=== PATIENT | female | born 1975 | race African-American/Black ===

== ENCOUNTER 2023-10-08 20:24 | Inpatient (IN) | payer MEDICAID, SELFPAY ==
--- NOTE | ~2023-10-08 | XR_ITS ---
EXAMINATION: XR CHEST CLINICAL INFORMATION: Hypoxia COMPARISON: None available. TECHNIQUE: Frontal view of the chest was obtained. FINDINGS: No significant abnormality is noted involving the heart, lungs, mediastinum, bony thorax or soft tissues. XR/XR chest 1V IMPRESSION: Unremarkable chest examination. Electronically signed by: Carl Jacobs MD 10/09/2023 07:13 AM EDT RP
--- NOTE | ~2023-10-08 | CT_ITS ---
EXAMINATION: CT ABDOMEN AND PELVIS WITH CONTRAST CLINICAL INFORMATION: Right upper quadrant pain. COMPARISON: None available. TECHNIQUE: Multidetector volumetric images were obtained from the superior aspect of the liver through the pubic symphysis following administration 85 mL of Omnipaque 350 intravenous contrast. Sagittal and coronal reformatted images were obtained on the technologist's workstation. Oral contrast: No This CT examination was performed using dose optimization techniques as appropriate, variously including the following: *Automated exposure control *Adjustment of mA and/or kV according to patient size (this includes techniques or standardized protocols for targeted exams where dose is matched to indication/reason for exam; i.e. extremities or head) *Use of iterative reconstruction technique DLP: 441 mGy-cm FINDINGS: LUNG BASES: The visualized lung bases are unremarkable. LIVER, GALLBLADDER, AND BILIARY TREE: There is a subcentimeter hypodensity left lobe of the liver too small to characterize but likely a small cyst. There is no intrahepatic biliary duct dilatation. The gallbladder is unremarkable with no evidence of radiopaque gallstones, gallbladder wall thickening, or obvious pericholecystic inflammatory changes. PANCREAS: Unremarkable. SPLEEN: Unremarkable. ADRENAL GLANDS: Unremarkable. KIDNEYS AND URETERS: The kidneys are normal in size, shape, and attenuation. No hydronephrosis, hydroureter, or calculi seen. No perinephric stranding. BLADDER: Unremarkable. GASTROINTESTINAL TRACT: There is retained stool. There is a small tubular structure in the right lower quadrant likely a normal appendix. ABDOMINAL WALL: No significant hernia is appreciated. LYMPH NODES: Normal. VASCULAR: Unremarkable. PELVIC VISCERA: There is an IUD in place. There is an apparent partially calcified uterine fibroid measuring 0.5 cm. There is a small amount of free fluid within the pelvis. OSSEOUS STRUCTURES: Unremarkable. CT/CT abdomen pelvis w IV con IMPRESSION: 1. Retained stool throughout the colon. 2. Small amount of free fluid within the pelvis. 3. IUD in place. 4. Small partially calcified uterine fibroid. Fleischner guidelines were followed. Electronically signed by: Ian Fernandez MD 10/09/2023 02:50 AM EDT
--- NOTE | ~2023-10-08 | US_ITS ---
EXAMINATION: US PELVIS COMPLETE CLINICAL INFORMATION: PID, IUD in place COMPARISON: CT abdomen pelvis 10/09/2023 TECHNIQUE: Transabdominal and transvaginal imaging was performed. FINDINGS: The uterus is of normal size and echogenicity measuring 9.2 x 4.9 x 6.2 cm. A regular homogeneous endometrium is identified measuring 0.6 cm. Trace possible fluid within the endometrial canal. Nabothian cysts in the cervix. Intrauterine device in place. A 1.8 cm partially pedunculated subserosal myoma in the right fundus of the uterus and a 1.3 cm subserosal myoma in the right body of the uterus. Both ovaries are of normal echogenicity. The right measures 4.4 x 2.9 x 3.1 cm for a volume of 20.7 mL. The right ovary is remarkable for a 3.3 cm benign functional cyst, no follow-up imaging recommended. Involuting physiologic right ovarian corpus luteum. The left measures 3.3 x 1.4 x 2.4 cm and is remarkable for a punctate nonspecific calcification. There is small to moderate volume simple pelvic and right adnexal free fluid. US/US pelvic and transvaginal IMPRESSION: 1. Small to moderate volume simple pelvic and right adnexal free fluid, common nonspecific but can be seen in the setting of ovarian cyst rupture. 2. Intrauterine device in place. 3. A 1.8 cm partially pedunculated subserosal myoma in the right fundus and a 1.3 cm subserosal myoma in the right body of the uterus. 4. The right ovary is remarkable for a 3.3 cm benign functional cyst, no follow-up imaging recommended. Electronically signed by: Mahnaz Kitchen MD 10/09/2023 11:53 AM EDT
[2023-10-08 21:40] VITALS: BP 112/61; PULSE 103; RESP 18; TEMP 38.2; O2SAT 98; BMI 26.9
[2023-10-08 22:03] LABS: MANUAL DIFF FLAG NO
[2023-10-08 22:04] LABS: Basophils Percent Auto 0.2 % (0-2); Eosinophils Percent Auto 0.2 % (0-4); Hematocrit 35.2 % (37.0-47.0); Hemoglobin 12.2 g/dl (12.0-16.0); Imm Gran Abs Auto 0.03 X10*3/uL (0.00-0.03); Imm Gran Pct Auto 0.5 % (0.0-0.4); Lymphocytes Absolute Auto 0.6 X10*3/uL (1.2-4.9); Mean Corpuscular HGB Conc 34.7 g/dl (31.0-35.0); Mean Corpuscular Hemoglobin 29.4 pg (27.0-33.0); Mean Corpuscular Volume 84.8 fL (80.0-98.0); Mean Platelet Volume 10.4 fL (9.4-12.3); Monocytes Absolute Auto 0.2 X10*3/uL (0.1-1.2); Monocytes Percent Auto 3.4 % (2-11); Neutrophils Absolute Auto 4.8 x10*3/uL (2.0-8.3); Neutrophils Percent Auto 84.7 % (45-73); Platelet Count 182 X10*3/uL (160-400); Red Blood Count 4.15 X10*6/uL (4.20-5.50); Red Cell Distribution Width 14.8 % (11.0-16.0); White Blood Count 5.6 X10*3/uL (4.8-10.8)
[2023-10-08 22:17] LABS: Alanine Aminotransferase 373 U/L (0-31); Albumin Level 3.9 g/dL (3.5-5.0); Alkaline Phosphatase 327 U/L (39-117); Anion Gap 13 (12-20); Aspartate Amino Transferase 634 U/L (5-31); Bilirubin Total 0.9 mg/dL (0.0-1.0); Blood Urea Nitrogen 16 mg/dL (9-16); Calcium 9.1 mg/dL (8.4-10.2); Carbon Dioxide 25 mmol/L (22-29); Chloride 104 mmol/L (96-108); Creatinine Clr Calc Pharmacy 67.7; Estimated Glomerular Filt Rate > 60; Glucose Random 118 mg/dL (60-115); Sodium 138 mmol/L (135-145)
[2023-10-08 22:40] LABS: Influenza A PCR NEGATIVE (Negative); Influenza B PCR NEGATIVE (Negative); Resp Syncy Virus RNA Qual PCR NEGATIVE (Negative); SARS COV2 PCR INHOUSE NEGATIVE (Negative)
[2023-10-09] VITALS (18 sets, daily range): BP systolic 90–142; BP diastolic 46–76; PULSE 74–118; RESP 16–36; TEMP 36.3–39.6; O2SAT 85–100; BMI 28.6
--- NOTE | 2023-10-09 00:50 | ED_ITS ---
HPI - Abdominal Pain General Chief Complaint: Upper Respiratory Symptoms Stated Complaint: fever since monday, body aches, nausea Time Seen by Provider: 10/09/23 00:18 Source: patient Mode of arrival: ambulatory Limitations: no limitations History of Present Illness ED Provider: Dr. Indio Saba HPI narrative: 48-year-old female with no significant past medical history who presents emergency department for evaluation of body aches, fever, cough, nausea, unable to eat secondary to food tasting bed, body aches and a vaginal discharge. Patient states she has had symptoms for proximally 5 days. She describes the vaginal discharge as a yellowish discharge with a foul odor. The patient is sexually active and she last had sex 1 week prior. She has 1 sexual partner. She denied diarrhea. She has had dysuria but no urinary frequency. Related Data Allergies Allergy/AdvReac Type Severity Reaction Status Date / Time No Known Allergies Allergy Verified 10/08/23 21:41 Review of Systems Review of Systems Yes all other systems are reviewed and are negative [facility] Past Medical History [facility] Narrative: Social history: She denies tobacco, alcohol and drug use Social History Social History Advance Directives: No Advance Directives Information Provided: Yes Physical Exam ED Vital Signs: Vital Signs - 24 hr 10/08/23 21:40 Temperature 100.8 F H Pulse Rate 103 H Respiratory Rate 18 Blood Pressure 112/61 Pulse Oximetry 98 Oxygen Delivery Method Room Air BMI result Body Mass Index 26.9 Vital signs revealed a low-grade fever of 100.8 degrees F, elevated heart rate of 103 Exam: General: Awake, alert in no distress Head: Normocephalic, atraumatic EENT: PERRL, Lids normal, sclera normal, conjunctiva normal, nose normal , ears normal, throat without erythema or exudates Neck: Supple, no adenopathy Lung: breath sounds symmetric, no wheezing, rales or rhonchi Chest: symmetric movement, nontender Heart: regular rate and rhythm, normal S1, S2 no murmurs or rubs Abdomen: Mild to moderate right upper quadrant tenderness with a negative Dukes sign, moderate right lower quadrant tenderness, mild to moderat, no involuntary guarding : External: No lesions noted Speculum: Vaginal: Thick white vaginal discharge Cervical: Thick, yellow, cervical discharge, IUD wires visible Bimanual: Patient has moderate to severe cervical motion tenderness, tenderness with palpation over the uterus and adnexa bilaterally Bimanual: Back: no vertebral tenderness, no CVAT Extremities: no deformities, moves all extremities symmetrically Neuro: Awake, alert, oriented, normal speech, cranial nerves intact, moves all extremities symmetrically Psych: Pleasant, cooperative Medical Decision Making Medical Decision Making MDM Narrative: 48-year-old female with no significant past medical history who presents emergency department for evaluation of body aches, fever, cough, nausea, unable to eat secondary to food tasting bed, body aches and a vaginal discharge. Patient states she has had symptoms for proximally 5 days. She describes the vaginal discharge as a yellowish discharge with a foul odor. The patient is sexually active and she last had sex 1 week prior. She has 1 sexual partner. She denied diarrhea. She has had dysuria but no urinary frequency. Vital signs revealed elevated heart rate and fever of 100.8 degrees F. physical examination revealed, right lower quadrant and suprapubic tenderness. exam revealed thick white vaginal discharge, thick yellow cervical discharge and significant cervical motion tenderness, tenderness palpation of the Unit nurse and adnexa bilaterally Differential diagnosis: ?Includes but is not limited to pancreatitis, cholecystitis, appendicitis, urinary tract infection, STI, viral syndrome Following evaluation was ordered: CBC, CMP, lipase, quantitative beta-hCG, on cultures, lactic acid, HIV, hepatitis A, B and C, syphilis screen, bacterial vaginosis panel, chlamydia and gonorrhea PCR, , HIV, Trichomonas screen, CT scan of the abdomen pelvis with IV contrast Patient was initially treated with the following: IV insert, normal saline x1 L, Toradol 15 mg IV, Zofran 4 mg IV Course: 01:57 The patient's abdominal exam revealed significant right upper quadrant, right lower quadrant and suprapubic tenderness. Concerning for pelvic inflammatory disease. Comprehensive metabolic panel revealed elevated AST, ALT and alk-phos with a normal bilirubin. I am concerned that the patient's symptoms may be secondary to pelvic inflammatory disease/chlamydial infection causing Jose-Hung- Zeb Syndrome. Therefore I ordered ceftriaxone 1 g IV and Flagyl 500 mg IV. At the end of my shift, the patient's CT scan of the abdomen pelvis is pending therefore the patient's care was turned over to my colleague, Dr. Gordon Albarran. Admission/Observation Consideration of admission/observation: Escalation of care including admission/observation considered (Yes) Lab Data [facility] Lab Attestation statement: I reviewed the patient's lab results. My independent interpretation patient's laboratory evaluation as follows: WBC was normal 5600. Normocytic anemia with an H&H of 12 and 35. Elevated AST, ALT and alk-phos at 634, 373 in 327 patient was bilirubin was normal Pat 0.9. COVID-19, influenza and RSV were negative 10/08/23 21:58 10/08/23 21:58 Labs: Lab Results 10/08/23 Range/Units 21:58 WBC 5.6 (4.8-10.8) X10*3/uL RBC 4.15 L (4.20-5.50) X10*6/uL Hgb 12.2 (12.0-16.0) g/dl Hct 35.2 L (37.0-47.0) % MCV 84.8 (80.0-98.0) fL MCH 29.4 (27.0-33.0) pg MCHC 34.7 (31.0-35.0) g/dl RDW 14.8 (11.0-16.0) % Plt Count 182 (160-400) X10*3/uL MPV 10.4 (9.4-12.3) fL Immature Gran % (Auto) 0.5 H (0.0-0.4) % Neut % (Auto) 84.7 H (45-73) % Lymph % (Auto) 11.0 L (20-40) % Larimer % (Auto) 3.4 (2-11) % Eos % (Auto) 0.2 (0-4) % Baso % (Auto) 0.2 (0-2) % Lymph # (Auto) 0.6 L (1.2-4.9) X10*3/uL Larimer # (Auto) 0.2 (0.1-1.2) X10*3/uL Eos # (Auto) 0.0 (0.0-0.4) X10*3/uL Baso # (Auto) 0.0 (0.0-0.2) X10*3/uL Abs Immat Gran (auto) 0.03 (0.00-0.03) X10*3/uL Absolute Neuts (auto) 4.8 (2.0-8.3) x10*3/uL Absolute Nucleated RBC 0.000 (0.0-0.012) X10*3/uL Nucleated RBC % (auto) 0.0 (0.0-0.2) /100WBC Sodium 138 (135-145) mmol/L Potassium 4.0 (3.3-5.1) mmol/L Chloride 104 (96-108) mmol/L Carbon Dioxide 25 (22-29) mmol/L Anion Gap 13 (12-20) BUN 16 (9-16) mg/dL Creatinine 0.89 (0.5-1.4) mg/dL Estim Creat Clear Calc 67.7 Estimated GFR > 60 Random Glucose 118 H (60-115) mg/dL Calcium 9.1 (8.4-10.2) mg/dL Total Bilirubin 0.9 (0.0-1.0) mg/dL AST 634 H (5-31) U/L ALT 373 H (0-31) U/L Alkaline Phosphatase 327 H (39-117) U/L Total Protein 7.0 (6.5-8.0) g/dL Albumin 3.9 (3.5-5.0) g/dL Lipase 11 (8-78) U/L Influenza Type A (PCR) NEGATIVE (Negative) Influenza Type B (PCR) NEGATIVE (Negative) RSV RNA Qual (PCR) NEGATIVE (Negative) SARS-CoV-2 RNA (RT-PCR) NEGATIVE (Negative) Medications Administered Discontinued Medications Generic Name Dose Route Start Last Admin Trade Name Freq PRN Reason Stop Dose Admin Iohexol 85 ml 10/09/23 01:58 10/09/23 01:58 Iohexol 350 Mg/Ml 100 Ml Infus..Btl IV 10/09/23 01:59 85 ml ONCE ONE Administration Discharge Plan Discharge Clinical Impression: Acute pelvic inflammatory disease, Abnormal liver function test Patient Disposition: Still a Patient Print Language: Albanian
[2023-10-09 01:30] LABS: Lipase 11 U/L (8-78)
[2023-10-09] MEDS: iohexoL 350 MG/ML 100 ML INFUS..BTL 85 ML IV (01:58)
[2023-10-09] MEDS: 0.9 % Sodium Chloride 1,000 ML 999 ML IV ×4 (02:15→10:52)
[2023-10-09] MEDS: Ketorolac Tromethamine 15 MG/ML VIAL IVPUSH (02:15)
[2023-10-09] MEDS: ondansetron HCL 4 MG/2 ML VIAL IVPUSH ×2 (02:15→22:59)
[2023-10-09 02:21] LABS: HCG Quantitative < 2 mIU/mL
[2023-10-09] MEDS: cefTRIAXone sodium 1 GM in 0.9 % Sodium Chloride 50 ML IV (02:41)
[2023-10-09 02:52] LABS: Lactic Acid 0.8 mmol/L (0.5-2.0)
[2023-10-09] MEDS: metroNIDAZOLE/NS 500 MG/100 ML PIGGYBACK 100 MG IV ×3 (03:28→20:23)
[2023-10-09] MEDS: Doxycycline Hyclate 100 MG in 0.9 % Sodium Chloride 250 ML 166.67 MG IV (04:38)
--- NOTE | 2023-10-09 04:38 | MHC.EDTECH ---
This tech took over care of patient at 0340,patient came from EM bed 5,rounds and vitals completed BP is low 93/46,Crystal MANRIQUEZ made aware,son at bedside and call beck in reach
[2023-10-09 04:48] LABS: CT PCR NOT DETECTED (Not Detect.); NG PCR NOT DETECTED (Not Detect.)
[2023-10-09] MEDS: Acetaminophen 325 MG TABLET 975 MG PO (05:19)
[2023-10-09] MEDS: Ibuprofen 600 MG TABLET PO (05:19)
--- NOTE | 2023-10-09 05:24 | PC.NURSE ---
pt was walking back from bathroom, shivering. back in bed pt couldn't control the tremors, feels like she is freezing. temp was 98.3 at that time. 20 minutes later with warm blankets and no change, temp 103.2. aware. blankets removed, pt medicated per APR
--- NOTE | 2023-10-09 06:15 | PC.NURSE ---
pt walked to bathroom to provide UA. vitals taken upon return. O2 85-91% on RA. pt placed on 2L 93%
--- NOTE | 2023-10-09 06:15 | MHC.EDTECH ---
Patient ambulated to the bathroom with a steady gait,urine sample obtained and sent to lab,patient has a temp of 103.0,RN is aware and at bedside.
[2023-10-09 06:19] LABS: Appearance Urine Clear; Color Urine Yellow; Glucose Urine UA Negative (Negative); Leukocyte Esterase Urine Trace (Negative); Nitrite Urine Negative (Negative); PH 5.5 (5.0-9.0); Specific Gravity - Urine >= 1.030 (1.005-1.025); UMIC TRIGGER UACC YES; Urine Blood Moderate (2+) (Negative); Urine Ketones 15 mg/dL (Negative); Urine Protein 30 (1+) mg/dL (Neg-Trace)
[2023-10-09 06:32] LABS: Bacteria Urine None Seen (None Seen); Hyaline Casts Urine 0-2 /LPF (0-2); WBC Urine 0-5 /HPF (0-5)
[2023-10-09 09:08] LABS: Bacterial Vaginosis PCR POSITIVE (Negative); Candida Group PCR DETECTED (Not Detect); Candida glab krusei PCR NOT DETECTED (Not Detect); Trichomonas vaginalis PCR NOT DETECTED (Not Detect)
--- NOTE | 2023-10-09 10:02 | PM.IMHP ---
History of Present Illness Date of Service: 10/09/23 Attending physician on admission: [facility] Chief Complaint: fevers, vaginal discharge 48 year old female with no significant past medical history except for recurrent UTi and recurrent vaginal candidiasis infections presented to the ED late last night for evaluation of fevers with rigors, malaise, myaglias that started 5 days ago. She states the next day developed vaginal soreness, RLQ pain, and yellow foul smelling vaginal discharge. She has had decreased appetite but no nausea and vomiting. She has one sexual partner and reports both are monogamous with each other. She does have an IUD in place for over 5 years and reports it was supposed to have already been removed but is overdue. She reports she had her first menstrual period last week since insertion of the IUD. No intercourse in 1 week and denies dyspareunia at that time. 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 No st, congestion, nausea, vomiting, dysuria, hematuria, increased urinary frequency, cough, sob, wheezing, or chest pain. Since arrival, has been febrile to 103, tachycardic to 118, tachypneic to 36, blood pressures soft at the time but no hypotension. She was given 2L with improvement in SBP to 142/67, on admission BP 93/52, meeting severe sepiss criteria. Lactic acid WNL, blood cultures pending. Renal function WNL, lytes normal. No leukocytosis. Total bili 0.9, AST 634, ALT 373, Alk phos 327. UA with elevated SG, 1+ protein, 2+ blood, trace leuks, no pyuria, neg bacteria. Neg for vale/chlamydia. +BV and +ally. Trich, HIV, syphillis, and Hep a/b/c pending. CT abd/pelvis showsretained stool, small amount of free fluid w/i pelvis, IUD in place, and smally partially calcified fibroid. In the ED, given 2L IVF, IV doxy, IV ctx, IV flagyl, tylenol, and ketorolac. No illicit drugs, alcohol, or cigarettes. Review of Systems Review of Systems: Yes all other systems are reviewed and are negative [facility] Medical History Recurrent UTI Vulvovaginal candidiasis Social History Household Members: Spouse Housing: Apartment Do you presently have visiting nurse or other home services: No Patient Tobacco Use Status: Never used Tobacco Meds Allergies Allergy/AdvReac Type Severity Reaction Status Date / Time No Known Allergies Allergy Verified 10/08/23 21:41 Active Medications: Current Medications Sodium Chloride (Ns) 1,000 mls @ 999 mls/hr IV .Q1H1M JIN Stop: 10/09/23 11:00 Home Medications ?Medication ?Instructions ?Recorded ?Confirmed ?Last Taken ?Type No Known Home Meds 10/09/23 10/09/23 Unknown History Physical Exam Vital Signs and Narrative: Vital Signs: Last Vital Signs Temp 98.2 F 10/09/23 08:00 Pulse 97 10/09/23 08:00 Resp 18 10/09/23 08:00 BP 113/76 10/09/23 08:00 Pulse Ox 95 10/09/23 08:00 O2 Del Method Room Air 10/09/23 08:00 O2 Flow Rate 2 10/09/23 06:42 BMI result Body Mass Index 26.9 Constitutional - Awake and Alert, No apparent distress Eyes - PERRLA, EOMI Cardiovascular - S1S2, RRR, No edema Respiratory - Normal lung expansion, Normal respiratory effort, No respiratory distress, CTA bilaterally Gastrointestinal - RUQ/RLQ ttp. ND; +BS; No rebound or guarding - Per ED exam, pelvis exam shows yellow discharge with +cervical motion tenderness Extremities - no calf tenderness bilaterally, no swelling Skin - Warm/Dry Neurological - Alert & oriented x3 Psychological - Appropriate affect Results Labs 10/10/23 05:53 10/10/23 05:53 Labs: Laboratory Results - last 24 hr 10/08/23 10/09/23 10/09/23 21:58 01:49 02:32 MCV 84.8 MCH 29.4 MCHC 34.7 RDW 14.8 Plt Count 182 MPV 10.4 Immature Gran % (Auto) 0.5 H Neut % (Auto) 84.7 H Lymph % (Auto) 11.0 L Coles % (Auto) 3.4 Eos % (Auto) 0.2 Baso % (Auto) 0.2 Lymph # (Auto) 0.6 L Coles # (Auto) 0.2 Eos # (Auto) 0.0 Baso # (Auto) 0.0 Abs Immat Gran (auto) 0.03 Absolute Neuts (auto) 4.8 Absolute Nucleated RBC 0.000 Nucleated RBC % (auto) 0.0 Anion Gap 13 Estim Creat Clear Calc 67.7 Estimated GFR > 60 Random Glucose 118 H Lactic Acid 0.8 Calcium 9.1 Total Bilirubin 0.9 AST 634 H ALT 373 H Alkaline Phosphatase 327 H Total Protein 7.0 Albumin 3.9 Lipase 11 Beta HCG, Quant < 2 Urine Color Urine Appearance Urine pH Ur Specific Carroll Urine Protein Urine Glucose (UA) Urine Ketones Urine Blood Urine Nitrite Ur Leukocyte Esterase Urine RBC Urine WBC Ur Squamous Epith Cells Urine Bacteria Hyaline Casts Chlam trachomat DNA PCR NOT DETECTED Influenza Type A (PCR) NEGATIVE Influenza Type B (PCR) NEGATIVE N.gonorrhoeae DNA (PCR) NOT DETECTED RSV RNA Qual (PCR) NEGATIVE SARS-CoV-2 RNA (RT-PCR) NEGATIVE T. vaginalis (PCR) NOT DETECTED Bact Vaginosis (PCR) POSITIVE A C. krusei/glabrata (PCR) NOT DETECTED Ally group (PCR) DETECTED A 10/09/23 06:14 MCV MCH MCHC RDW Plt Count MPV Immature Gran % (Auto) Neut % (Auto) Lymph % (Auto) Coles % (Auto) Eos % (Auto) Baso % (Auto) Lymph # (Auto) Coles # (Auto) Eos # (Auto) Baso # (Auto) Abs Immat Gran (auto) Absolute Neuts (auto) Absolute Nucleated RBC Nucleated RBC % (auto) Anion Gap Estim Creat Clear Calc Estimated GFR Random Glucose Lactic Acid Calcium Total Bilirubin AST ALT Alkaline Phosphatase Total Protein Albumin Lipase Beta HCG, Quant Urine Color Yellow Urine Appearance Clear Urine pH 5.5 Ur Specific Carroll >= 1.030 H Urine Protein 30 (1+) H Urine Glucose (UA) Negative Urine Ketones 15 Urine Blood Moderate (2+) H Urine Nitrite Negative Ur Leukocyte Esterase Trace H Urine RBC 11-20 H Urine WBC 0-5 Ur Squamous Epith Cells 3-5 Urine Bacteria None Seen Hyaline Casts 0-2 Chlam trachomat DNA PCR Influenza Type A (PCR) Influenza Type B (PCR) N.gonorrhoeae DNA (PCR) RSV RNA Qual (PCR) SARS-CoV-2 RNA (RT-PCR) T. vaginalis (PCR) Bact Vaginosis (PCR) C. krusei/glabrata (PCR) Ally group (PCR) Imaging Radiologist's Impressions: Impressions Abdomen/Pelvis CT 10/09/23 01:40 IMPRESSION: 1. Retained stool throughout the colon. 2. Small amount of free fluid within the pelvis. 3. IUD in place. 4. Small partially calcified uterine fibroid. Fleischner guidelines were followed. Electronically signed by: Ian Fernandez MD 10/09/2023 02:50 AM EDT RP Chest X-Ray 10/09/23 06:22 IMPRESSION: Unremarkable chest examination. Electronically signed by: Carl Jacobs MD 10/09/2023 07:13 AM EDT RP Assessment and Plan (1) Abnormal liver function test: Status: Acute (2) Acute pelvic inflammatory disease: Status: Acute (3) Bacterial vaginosis: Status: Acute (4) Vulvovaginal candidiasis: Status: Acute Plan 48 year old female with no significant past medical history except for recurrent UTi and recurrent vaginal candidiasis infections admitted for further management of PID with severe sepsis #Acute pelvic inflammatory disease with severe sepsis -No leukcytosis but febrile to 103, tachycardic and tachypneic. Met severe sepsis criteria at 947am with decrease in SBP >40. Repeat lactic acid and blood cultures pending. Administer 2L IVF (30cc/kg bolus) -Neg gonorrhea/chlamydia. Trich pending. +BV, +Ally. +cervical motion tenderness on exam and yellow dc -CT abd/pelvis shows small amt of free fluid. Check pelvic/transvaginal US -IUD overdue for removal per pt (unknown brand) -IV doxy, ctx, flagyl (initiated 10/08) -OBGYN consult -Follow cbc, cultures #Elevated LFTs -bili wnl, AST >600, ALT >300, Alk phos >300 -?r/t sepsis vs ?Soyu-Mmqe-Hitlnf? -hepatitis panel and HIV pending -check cpk -GI consult -trend #Acute metabolic acidosis -likely due to sepsis. CO2 25-->19. Check VBG -continue ivf #Constipation -add miralax DVT prophylaxis- lovenox Full code Pt requires inpt stay at least 2 midnights due to severe sepsis r/t PID requiring IV abx and IVF with expert consultation Quality Stroke Does the patient have a stroke diagnosis?: No VTE Prior VTE?: No VTE Risk Level:: Medical - moderate - high VTE Device Contraindication: Treatment Not Indicated VTE Drug Contraindication: N/A - Med Ordered
[2023-10-09 10:56] LABS: MANUAL DIFF FLAG NO
[2023-10-09 10:58] LABS: Basophils Percent Auto 0.4 % (0-2); Hematocrit 31.7 % (37.0-47.0); Hemoglobin 10.7 g/dl (12.0-16.0); Imm Gran Abs Auto 0.06 X10*3/uL (0.00-0.03); Imm Gran Pct Auto 0.6 % (0.0-0.4); Lymphocytes Absolute Auto 0.8 X10*3/uL (1.2-4.9); Lymphocytes Percent Auto 7.6 % (20-40); Mean Corpuscular HGB Conc 33.8 g/dl (31.0-35.0); Mean Corpuscular Hemoglobin 29.2 pg (27.0-33.0); Mean Corpuscular Volume 86.4 fL (80.0-98.0); Mean Platelet Volume 9.8 fL (9.4-12.3); Monocytes Absolute Auto 0.4 X10*3/uL (0.1-1.2); Monocytes Percent Auto 3.4 % (2-11); Neutrophils Absolute Auto 9.2 x10*3/uL (2.0-8.3); Platelet Count 156 X10*3/uL (160-400); Red Blood Count 3.67 X10*6/uL (4.20-5.50); White Blood Count 10.4 X10*3/uL (4.8-10.8)
[2023-10-09 11:11] LABS: Lactic Acid 0.8 mmol/L (0.5-2.0)
[2023-10-09 11:15] LABS: Alanine Aminotransferase 231 U/L (0-31); Albumin Level 3.3 g/dL (3.5-5.0); Alkaline Phosphatase 233 U/L (39-117); Anion Gap 16 (12-20); Aspartate Amino Transferase 238 U/L (5-31); Bilirubin Direct 0.7 mg/dL (0.0-0.5); Blood Urea Nitrogen 11 mg/dL (9-16); Carbon Dioxide 19 mmol/L (22-29); Chloride 107 mmol/L (96-108); Creatinine Clr Calc Pharmacy 66.9; Estimated Glomerular Filt Rate > 60; Glucose Random 105 mg/dL (60-115); Potassium 3.4 mmol/L (3.3-5.1); Sodium 139 mmol/L (135-145); Total Protein 5.9 g/dL (6.5-8.0)
--- NOTE | 2023-10-09 11:45 | PC.NURSE ---
Assumed care of this patient at 1100, informed by previous nurse Cecilia patient is considered a sepsis alert, 2L NS running in 20 L AC, patient denies pain at this time, phleb at bedside to draw additional lab, am meds not given yet to be given now.
[2023-10-09] MEDS: Enoxaparin Sodium 40 MG/0.4 ML SYRINGE SUBCUT (11:48)
[2023-10-09] MEDS: Fluconazole 150 MG TABLET PO (11:48)
[2023-10-09] MEDS: polyethylene glycoL 3350 17 GM POWD.PACK PO (11:49)
[2023-10-09 11:56] LABS: Venous Blood Gas Refer to POC result
[2023-10-09 11:58] LABS: VBG Base Excess -4.1 mmol/L; VBG HCO3 20 mmol/L (22-26); VBG pCO2 36 mmHg; VBG pH 7.36 (7.32-7.43); VBG pO2 29 mmHg
--- NOTE | 2023-10-09 12:38 | PM.GICN ---
History of Present Illness Data of Consult Service Date: 10/09/23 Requesting physician: Sugar Manley Primary Care Provider: Unknown Physician HPI Reason for consult: abn LFT 48 year old female with hx of recurrent UTi and recurrent vaginal candidiasis infections who I am seeing for assessment for abn LFT She had 5 d of whole body pain, with rigors, fevers and chills. HSe also had poor appetite. She has mild nausea. She noted mild RLQ pain which is now gone and a yellow vaginal d/c which is new for her. Denies dysuria, hematuria, increased urinary frequency, cough, sob, wheezing, or chest pain.No sick contacts or illicit drug use. Imaging: CT with small amount of free fluid w/i pelvis, IUD in place, and smally partially calcified fibroid Labs: Lactic acid WNL, blood cultures pending. Renal function WNL, lytes normal. No leukocytosis. Total bili 0.9, AST 634, ALT 373, Alk phos 327. UA with elevated SG, 1+ protein, 2+ blood, trace leuks, no pyuria, neg bacteria. Neg for vale/chlamydia. +BV and +ally. Trich, HIV, syphillis, and Hep a/b/c pending Review of Systems Review of Systems: Constitutional : No Weight loss, ENT/Mouth : No sore throat, No Rhinorrhea Eyes: No Swelling, No Redness Cardiovascular : No Chest Pain, No SOB, No Edema Respiratory : No Cough, No Sputum, No Wheezing Gastrointestinal : see HPI Genitourinary : NO Dysuria, No Urinary Frequency, No Hematuria, No Urgency Musculoskeletal : + joint pain, No Myalgias, No Joint Swelling Skin : No Skin Lesions, No rash Neuro : + Weakness, No Numbness, No Dizziness, No Headache Psych : No Anxiety/Panic, No Depression Heme/Lymph: No Bruising, No Lymphadenopathy Endocrine : No Polyuria, No Polydipsia All other systems reviewed and are negative. [facility] Past Medical History Medical History Recurrent UTI Vulvovaginal candidiasis Family History Pertinent family history: no fh of liver dz Social History Social History Patient Tobacco Use Status: Never used Tobacco Smoked in Last 30 Days: No Use of substances other than those prescribed or required for medical reasons: No Advance Directives: No Advance Directives Information Provided: Yes Nutrition Risks: No Nutritional Risk Patient : No Meds Allergies Allergy/AdvReac Type Severity Reaction Status Date / Time No Known Allergies Allergy Verified 10/08/23 21:41 Active Medications: Current Medications Acetaminophen (Acetaminophen 325 Mg Tablet) 650 mg PO Q6H PRN PRN Reason: Pain, Mild (Pain Scale 1-3), fever or headache Calcium Carbonate (Calcium Carbonate 750 Mg Tab.Chew) 750 mg PO Q4H PRN PRN Reason: Heartburn Enoxaparin Sodium (Enoxaparin Sodium 40 Mg/0.4 Ml Syringe) 40 mg SUBCUT Q24H [facility] Last Admin: 10/09/23 11:48 Dose: 40 mg Metronidazole (Flagyl) 500 mg in 100 mls @ 100 mls/hr IV Q8H [facility] Last Admin: 10/09/23 11:49 Dose: 100 mls/hr Ceftriaxone Sodium 1 gm/ (Sodium Chloride) 50 mls @ 100 mls/hr IV Q24H [facility] Doxycycline Hyclate 100 mg/ (Sodium Chloride) 250 mls @ 166.67 mls/hr IV Q12H [facility] Magnesium Hydroxide (Milk Of Magnesia 30 Ml Oral.Susp) 30 ml PO DAILY PRN PRN Reason: Constipation Melatonin (Melatonin 3 Mg Tablet) 6 mg PO BEDTIME PRN PRN Reason: Insomnia Oxycodone HCl (Oxycodone Hcl Immed Release 5 Mg Tablet) 5 mg PO Q6H PRN PRN Reason: Pain, Severe (Pain Scale 7-10) Polyethylene Glycol (Polyethylene Glycol 3350 17 Gm Powd.Pack) 17 gm PO DAILY [facility] Last Admin: 10/09/23 11:49 Dose: 17 gm Sodium Chloride (0.9 % Sodium Chloride Flush 3 Ml Syringe) 3 ml IVFLUSH QSHIFT [facility] Physical Exam Vital Signs: Vital Signs: Last Vital Signs Temp 97.8 F 10/09/23 11:56 Pulse 82 10/09/23 11:56 Resp 16 10/09/23 11:56 BP 92/54 L 10/09/23 11:56 Pulse Ox 99 10/09/23 11:56 O2 Del Method Room Air 10/09/23 11:56 O2 Flow Rate 2 10/09/23 06:42 BMI result Body Mass Index 26.9 EXAM: GENERAL: The patient is well developed and nontoxic. VITAL SIGNS:see workflow HEENT: Nonicteric sclerae, PERRLA, EOMI. Oropharynx clear. Moist mucous membranes. Conjunctivae appear well perfused. No thyroid mass. CHEST: Chest wall is nontender. HEART: Regular rate and rhythm without murmurs. LUNGS: Clear to auscultation bilaterally. ABDOMEN: Soft, positive bowel sounds, diffusely tender, no organomegaly.no flank tenderness SKIN: No rash, no excessive bruising, petechiae, or purpura. NEUROLOGIC: Cranial nerves II-XII intact without motor/sensory deficit. Psych: normal affect Results Labs 10/09/23 10:50 10/09/23 10:51 Labs: Short CBC 10/08/23 10/09/23 Range/Units 21:58 10:50 WBC 5.6 10.4 (4.8-10.8) X10*3/uL Hgb 12.2 10.7 L (12.0-16.0) g/dl Hct 35.2 L 31.7 L (37.0-47.0) % Plt Count 182 156 L (160-400) X10*3/uL BMP 10/08/23 10/09/23 21:58 10:51 Sodium 138 139 Potassium 4.0 3.4 Chloride 104 107 Carbon Dioxide 25 19 L BUN 16 11 Creatinine 0.89 0.90 Calcium 9.1 8.0 L D Cardiac Enzymes 10/09/23 Range/Units 11:45 Total Creatine Kinase 186 H (26-140) U/L Liver Function 10/08/23 10/09/23 Range/Units 21:58 10:51 Total Bilirubin 0.9 1.0 (0.0-1.0) mg/dL Direct Bilirubin 0.7 H (0.0-0.5) mg/dL AST 634 H 238 H (5-31) U/L ALT 373 H 231 H (0-31) U/L Alkaline Phosphatase 327 H 233 H (39-117) U/L Albumin 3.9 3.3 L (3.5-5.0) g/dL Urine 10/09/23 Range/Units 06:14 Urine Color Yellow Urine Appearance Clear Urine pH 5.5 (5.0-9.0) Ur Specific [place] >= 1.030 H (1.005-1.025) Urine Protein 30 (1+) H (Neg-Trace) mg/dL Urine Glucose (UA) Negative (Negative) mg/dL Microbiology Microbiology Results: Microbiology 10/09/23 01:49 Vaginal Trichomonas Preparation - Final Assessment and Plan (1) Abnormal liver function test: Status: Acute Plan 1/ Abn LFT prob related to sepsis and cholestasis, second set of LFT [facility] lower than index set, she has no RF for acute hepatitis, ddx: other viral agents like flu, covid, EBV etc--may also have UTI or PID and receiving ABX--imaging not consistent with mode high deepthi PLAN; 1/ await urine and blood c/s 2/ check viral pcr panel and EBV if LFT remain elevated 3/ Ck also elevated --some rise may be due to her fevers and coming from muscle 4/ await hep A,B,C -hiv etc 5/ check acetaminophen level Procedures Date of Service Date of Service: 10/09/23
--- NOTE | 2023-10-09 13:05 | PHA.MEDREC ---
Pharmacy Consult ? Medication Reconciliation Pharmacy has completed the medication reconciliation. Verified with patient, she is not taking any medication at home.
--- NOTE | 2023-10-09 13:06 | PC.NURSE ---
Dr. Ramirez ordered add on test for CPK, already drawn earlier this AM, reached out to Dr. Ramirez via tiger to see if he needed another lab drawn, James said no redrawn necessary. Patient to be admitted to 4th floor once transport available.
[2023-10-09 13:36] LABS: Acetaminophen LAB < 3 mcg/mL (<30)
[2023-10-09] MEDS: Lactated Ringers 1,000 ML 80 ML IVCONT (14:00)
[2023-10-09] MEDS: Albumin Human 25 % 100 ML 133.33 ML IV ×2 (16:17→17:30)
[2023-10-09] MEDS: 0.9 % Sodium Chloride Flush 3 ML SYRINGE IVFLUSH (16:23)
[2023-10-10] MEDS: oxyCODONE HCl Immed Release 5 MG TABLET PO (00:15)
[2023-10-10] MEDS: Acetaminophen 325 MG TABLET 650 MG PO (00:27)
[2023-10-10] MEDS: 0.9 % Sodium Chloride Flush 3 ML SYRINGE IVFLUSH ×3 (00:31→16:23)
[2023-10-10] MEDS: Lactated Ringers 1,000 ML 80 ML IVCONT ×2 (02:30→18:00)
[2023-10-10] MEDS: cefTRIAXone sodium 1 GM in 0.9 % Sodium Chloride 50 ML IV (02:44)
[2023-10-10] MEDS: metroNIDAZOLE/NS 500 MG/100 ML PIGGYBACK 100 MG IV ×3 (03:29→19:39)
[2023-10-10 03:56] VITALS: BP 97/54; PULSE 72; RESP 16; TEMP 36.4; O2SAT 96
[2023-10-10 06:06] LABS: MANUAL DIFF FLAG NO
[2023-10-10 06:18] LABS: Basophils Percent Auto 0.4 % (0-2); Eosinophils Absolute Auto 0.1 X10*3/uL (0.0-0.4); Hematocrit 26.7 % (37.0-47.0); Hemoglobin 8.8 g/dl (12.0-16.0); Imm Gran Abs Auto 0.04 X10*3/uL (0.00-0.03); Imm Gran Pct Auto 0.6 % (0.0-0.4); Lymphocytes Absolute Auto 2.3 X10*3/uL (1.2-4.9); Lymphocytes Percent Auto 31.3 % (20-40); Mean Corpuscular Hemoglobin 28.3 pg (27.0-33.0); Mean Corpuscular Volume 85.9 fL (80.0-98.0); Mean Platelet Volume 10.8 fL (9.4-12.3); Monocytes Absolute Auto 0.4 X10*3/uL (0.1-1.2); Monocytes Percent Auto 5.5 % (2-11); Neutrophils Absolute Auto 4.4 x10*3/uL (2.0-8.3); Neutrophils Percent Auto 61.2 % (45-73); Platelet Count 170 X10*3/uL (160-400); Red Blood Count 3.11 X10*6/uL (4.20-5.50); Red Cell Distribution Width 15.6 % (11.0-16.0); White Blood Count 7.2 X10*3/uL (4.8-10.8)
[2023-10-10 06:25] LABS: Alanine Aminotransferase 153 U/L (0-31); Albumin Level 3.3 g/dL (3.5-5.0); Alkaline Phosphatase 168 U/L (39-117); Anion Gap 13 (12-20); Aspartate Amino Transferase 132 U/L (5-31); Bilirubin Direct 0.3 mg/dL (0.0-0.5); Bilirubin Total 0.5 mg/dL (0.0-1.0); Blood Urea Nitrogen 12 mg/dL (9-16); Calcium 7.8 mg/dL (8.4-10.2); Carbon Dioxide 20 mmol/L (22-29); Chloride 111 mmol/L (96-108); Creatinine Clr Calc Pharmacy 83.9; Estimated Glomerular Filt Rate > 60; Glucose Random 76 mg/dL (60-115); Potassium 3.3 mmol/L (3.3-5.1); Sodium 141 mmol/L (135-145); Total Protein 5.4 g/dL (6.5-8.0)
[2023-10-10 07:01] VITALS: BP 113/61; PULSE 77; RESP 18; TEMP 36.2; O2SAT 94
[2023-10-10] MEDS: ondansetron HCL 4 MG/2 ML VIAL IVPUSH (07:34)
[2023-10-10 08:01] LABS: HBS Num1 0.75 mIU/mL (0-7.99); HBc Num1 0.07 S/CO (0.00-0.79); HBsAGNum1 0.31 S/CO (0.00-0.99); HIV AB/AG Nonreactive (Nonreactive); HIV Num 1 0.05 S/CO (0.00-0.99); Hepatitis A Antibody IgM 0.18 Index (0-0.79); Hepatitis B Core Antibody Nonreactive (Nonreactive); Hepatitis B Surface Antigen Negative (Negative); Syphilis Screen Nonreactive (Nonreactive); ~HepC Num1 0.07 S/CO (0.00-0.79); ~Hepatitis A Antibody IgM Nonreactive (Nonreactive); ~Hepatitis B Surface Antibody NONREACTIVE (Nonreactive); ~Hepatitis C Antibody Nonreactive (Nonreactive)
--- NOTE | 2023-10-10 08:45 | P.CONOB_ITS ---
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 She the patient is complaining of vaginal soreness, RLQ pain, and yellow foul smelling vaginal discharge. She has had decreased appetite but no nausea and vomiting. She has one sexual partner and reports both are monogamous with each other. She does have an IUD in place for over 5 years. She reports she had her first menstrual period last week since insertion of the IUD 5 years ago. No intercourse in 1 week and denies dyspareunia at that time. The workup done in the emergency room include the following CBC showed no leukocytosis, hCG less than 2, elevated liver function tests AST/ALT/alkaline phosphatase GC/CT negative BV panel showed positive BV and Stephenie CT scan of abdomen and pelvis showed the following: IMPRESSION: 1. Retained stool throughout the colon. 2. Small amount of free fluid within the pelvis. 3. IUD in place. 4. Small partially calcified uterine fibroid: Pelvic ultrasound showed the following: IMPRESSION: 1. Small to moderate volume simple pelvic and right adnexal free fluid, common nonspecific but can be seen in the setting of ovarian cyst rupture. 2. Intrauterine device in place. 3. A 1.8 cm partially pedunculated subserosal myoma in the right fundus and a 1.3 cm subserosal myoma in the right body of the uterus. 4. The right ovary is remarkable for a 3.3 cm benign functional cyst, no follow-up imaging recommended. The patient was admitted started on ceftriaxone 1 g Q 24 hour, Flagyl 500 mg b.i.d. and doxycycline 100 mg b.i.d. cc:: CC: Mirna Mathis NP [facility] Past Medical History Medical History Recurrent UTI Vulvovaginal candidiasis Social History Social History Household Members: Spouse Housing: Apartment Do you presently have visiting nurse or other home services: No Patient Tobacco Use Status: Never used Tobacco Meds Allergies Allergy/AdvReac Type Severity Reaction Status Date / Time No Known Allergies Allergy Verified 10/08/23 21:41 Active Medications: Current Medications Acetaminophen (Acetaminophen 325 Mg Tablet) 650 mg PO Q6H PRN PRN Reason: Pain, Mild (Pain Scale 1-3), fever or headache Last Admin: 10/10/23 00:27 Dose: 650 mg Calcium Carbonate (Calcium Carbonate 750 Mg Tab.Chew) 750 mg PO Q4H PRN PRN Reason: Heartburn Enoxaparin Sodium (Enoxaparin Sodium 40 Mg/0.4 Ml Syringe) 40 mg SUBCUT Q24H [facility] Last Admin: 10/09/23 11:48 Dose: 40 mg Metronidazole (Flagyl) 500 mg in 100 mls @ 100 mls/hr IV Q8H [facility] Last Infusion: 10/10/23 04:29 Dose: Infused Ceftriaxone Sodium 1 gm/ (Sodium Chloride) 50 mls @ 100 mls/hr IV Q24H [facility] Last Infusion: 10/10/23 03:14 Dose: Infused Doxycycline Hyclate 100 mg/ (Sodium Chloride) 250 mls @ 166.67 mls/hr IV Q12H [facility] Lactated Ringer's (Lr) 1,000 mls @ 80 mls/hr IVCONT .[id number] [facility] Last Admin: 10/10/23 02:30 Dose: 80 mls/hr Magnesium Hydroxide (Milk Of Magnesia 30 Ml Oral.Susp) 30 ml PO DAILY PRN PRN Reason: Constipation Melatonin (Melatonin 3 Mg Tablet) 6 mg PO BEDTIME PRN PRN Reason: Insomnia Ondansetron HCl (Ondansetron Hcl 4 Mg/2 Ml Vial) 4 mg IVPUSH Q6H PRN PRN Reason: Nausea and Vomiting Last Admin: 10/10/23 07:34 Dose: 4 mg Oxycodone HCl (Oxycodone Hcl Immed Release 5 Mg Tablet) 5 mg PO Q6H PRN PRN Reason: Pain, Severe (Pain Scale 7-10) Last Admin: 10/10/23 00:15 Dose: 5 mg Polyethylene Glycol (Polyethylene Glycol 3350 17 Gm Powd.Pack) 17 gm PO DAILY [facility] Last Admin: 10/09/23 11:49 Dose: 17 gm Sodium Chloride (0.9 % Sodium Chloride Flush 3 Ml Syringe) 3 ml IVFLUSH QSHIFT [facility] Last Admin: 10/10/23 07:37 Dose: 3 ml Home Medications ?Medication ?Instructions ?Recorded ?Confirmed ?Last Taken ?Type No Known Home Meds 10/09/23 10/09/23 Unknown History MEDICAL OFFICE MANAGER Physical Exam Vitals Vital signs: Temp Pulse Resp BP Pulse Ox O2 Del Method O2 Flow Rate 97.1 F 77 18 113/61 94 Room Air 2 10/10/23 07:01 10/10/23 07:01 10/10/23 07:01 10/10/23 07:01 10/10/23 07:01 10/10/23 07:01 10/09/23 06:42 BMI result Body Mass Index 28.6 Abdomen Auscultation/Inspection/Palpation: Normal bowel sounds, Soft, Non-distended and Tenderness (Mild right lower quadrant tenderness) Female Genitalia (Pelvic) Vagina: Nontender Cervix: Cervical motion tenderness Uterus: Tender Adnexa/Parametria: Adnexal Tenderness: Right, Adnexal Mass: None, Parametrial Tenderness: None and Parametrial Mass: None MEDICAL OFFICE MANAGER - Results Labs 10/10/23 05:53 10/10/23 05:53 Labs: Short CBC 10/09/23 10/10/23 Range/Units 10:50 05:53 WBC 10.4 7.2 (4.8-10.8) X10*3/uL Hgb 10.7 L 8.8 L (12.0-16.0) g/dl Hct 31.7 L 26.7 L (37.0-47.0) % Plt Count 156 L 170 (160-400) X10*3/uL BMP 10/09/23 10/10/23 10:51 05:53 Sodium 139 141 Potassium 3.4 3.3 Chloride 107 111 H Carbon Dioxide 19 L 20 L BUN 11 12 Creatinine 0.90 0.74 Calcium 8.0 L D 7.8 L Cardiac Enzymes 10/09/23 Range/Units 11:45 Total Creatine Kinase 186 H (26-140) U/L Liver Function 10/09/23 10/10/23 Range/Units 10:51 05:53 Total Bilirubin 1.0 0.5 (0.0-1.0) mg/dL Direct Bilirubin 0.7 H 0.3 (0.0-0.5) mg/dL AST 238 H 132 H (5-31) U/L ALT 231 H 153 H (0-31) U/L Alkaline Phosphatase 233 H 168 H (39-117) U/L Albumin 3.3 L 3.3 L (3.5-5.0) g/dL Urine 10/09/23 Range/Units 06:14 Urine Color Yellow Urine Appearance Clear Urine pH 5.5 (5.0-9.0) Ur Specific [place] >= 1.030 H (1.005-1.025) Urine Protein 30 (1+) H (Neg-Trace) mg/dL Urine Glucose (UA) Negative (Negative) mg/dL Imaging CT scan - abdomen: Radiologist's impression: ITS Impressions Abdomen/Pelvis CT 10/09/23 01:40 IMPRESSION: 1. Retained stool throughout the colon. 2. Small amount of free fluid within the pelvis. 3. IUD in place. 4. Small partially calcified uterine fibroid. Fleischner guidelines were followed. Electronically signed by: Ian Fernandez MD 10/09/2023 02:50 AM [facility] Chest X-Ray 10/09/23 06:22 IMPRESSION: Unremarkable chest examination. Electronically signed by: Carl Jacobs MD 10/09/2023 07:13 AM [email or web address] Pelvic/Transvag US 10/09/23 10:17 IMPRESSION: 1. Small to moderate volume simple pelvic and right adnexal free fluid, common nonspecific but can be seen in the setting of ovarian cyst rupture. 2. Intrauterine device in place. 3. A 1.8 cm partially pedunculated subserosal myoma in the right fundus and a 1.3 cm subserosal myoma in the right body of the uterus. 4. The right ovary is remarkable for a 3.3 cm benign functional cyst, no follow-up imaging recommended. Electronically signed by: Mahnaz Kitchen MD 10/09/2023 11:53 AM [facility] [facility] [employer] Assessment and Plan (1) Abnormal uterine bleeding: Status: Acute Discussed with the patient the different causes of abnormal bleeding including thyroid disorders, uterine and ovarian pathology, endometrial hyperplasia, carcinoma and other potential causes. Discussed with the patient the work up the indication for endometrial biopsy to r/o endometrial pathology. All questions answered and the patient verbalized understanding. Instructed the patient to schedule an appointment after outpatient discharge for an endometrial biopsy within 2 weeks. (2) Uterine myoma: Status: Acute Discussed with the patient the findings on pelvic ultrasound & the risk of myosarcoma; discussed with the patient the options of treatment including expectant management versus hysterectomy; the pros and cons, risks benefits of each approach were discussed with the patient including the fact that in cases of myosarcoma, surgical treatment can lead to early diagnosis and positively affects the prognosis; after further discussion, the patient decided to proceed with expectant management. Will repeat pelvic ultrasound periodically. Instructions given to patient to call in case any of the following occurs: pressure symptoms, abnormal uterine bleeding, pelvic pain; and to schedule a six-months pelvic ultrasound and a follow-up appointment . All questions answered, the patient verbalized understanding and agreed with the plan . (3) Acute pelvic inflammatory disease: Status: Acute GC chlamydia, BV panel and Trichomonas were taken. STD screen including HIV, hepatitis-B surface antigen, Hepatitis-C antibody and RPR were negative. Recommend continue on IV antibiotics with Ceftriaxone 1 g Q 24, doxycycline 100 mg p.o. or IV q.12, metronidazole 500 mg IV or p.o. q.12 till clinical improvement for 48-72 hours, then discharge home on doxycycline 100 mg p.o. b.i.d. with Flagyl 500 mg p.o. b.i.d. for a total of 14 days, to be followed up as an outpatient within 2 weeks. In the event the patient does not progress or develop any of the following: Suspected sepsis , enlarging pelvic mass, new onset fever, persistent or worsening abdomino/pelvic tenderness after 48-72 hours of treatment with IV antibiotics, the patient might need re-evaluation This note was generated with a voice recognition program. Some errors may have been overlooked during the review of this note. Sometimes these errors may affect the content or meaning of a given sentence. (4) Vulvovaginal candidiasis: Status: Acute Fluconazole 150 mg x 1 given to the patient (5) Abnormal liver function test: Status: Acute Will defer the management of elevated function that to the hospitalist service. Of note Elevated liver function tests could be related to PID in case of mode [place] Moh[place] syndrome due to Daniel hepatitis setting of PID with inflammation of the liver capsule and peritoneal surfaces of the anterior right upper quadrant (6) Bacterial vaginosis: Status: Acute The patient is on Flagyl =which will treat BV (7) IUD (intrauterine device) in place: Status: Acute Discussed with the patient that IUD does not appear to be associated with increased risk of PID, removal of an IUD in the setting of PID is not necessary however it might be warranted in case clinical improvement with IV antiemetics does not occur, the patient would like to take it out. IUD removal done, see procedure MEDICAL OFFICE MANAGER Procedures Foreign Body Removal Comments: Counseling/Consent: After discussing with the patient the risks of the procedure including bleeding, scar tissue formation, , possible injury to blood vessels or nerves, chronic arm pain, blood transfusion, and irregular unpredictable bleeding Alternative options were discussed with the patient including but not limited: Do nothing. The patient signed the consent and agreed with the plan; all questions answered. Urine test was done in the office and was negative Preop dx: PID, Requesting IUD removal Op: IUD removal Post op dx: same EBL= 10 cc Procedure: The patient was put in the dorsal lithotomy position a speculum was inserted in the vagina the IUD thread identified. Using a Cecilia clamp the thread was grasped and the IUD pulled out with no complications. The patient tolerated the procedure well and was advised to use a different method for contraception. IUD was sent to microbiology culture Discharge instructions: Instructions were given to the pt to call if temp>100.4, abdominal pain heavy vaginal bleeding, n/v occur. The patient verbalized understanding and all questions answered. This note was generated with a voice recognition program. Some errors may have been overlooked during the review of this note. Sometimes these errors may affect the content or meaning of a given sentence.
--- NOTE | 2023-10-10 09:39 | P.PNIM_ITS ---
Subjective Subjective Date of Service: 10/10/23 Review of Systems Follow up PID c/o nausea and vomiting no abd pain Physical Exam 2 Vital Signs: Vital Signs: Last Vital Signs Temp 97.1 F 10/10/23 07:01 Pulse 77 10/10/23 07:01 Resp 18 10/10/23 07:01 BP 113/61 10/10/23 07:01 Pulse Ox 94 10/10/23 07:01 O2 Del Method Room Air 10/10/23 07:01 O2 Flow Rate 2 10/09/23 06:42 BMI result Body Mass Index 28.6 Appearing in no acute distress lung sounds are clear to auscultation heart regular rate rhythm, clear S1, S2 positive bowel sounds, abdomen is soft, nontender neuro patient is alert x3, no focal deficits Objective Data Active Medications Acetaminophen (Acetaminophen 325 Mg Tablet) 650 mg PO Q6H PRN PRN Reason: Pain, Mild (Pain Scale 1-3), fever or headache Last Admin: 10/10/23 00:27 Dose: 650 mg Documented By: YG Calcium Carbonate (Calcium Carbonate 750 Mg Tab.Chew) 750 mg PO Q4H PRN PRN Reason: Heartburn Enoxaparin Sodium (Enoxaparin Sodium 40 Mg/0.4 Ml Syringe) 40 mg SUBCUT Q24H [facility] Last Admin: 10/09/23 11:48 Dose: 40 mg Documented By: GUILHERME Metronidazole (Flagyl) 500 mg in 100 mls @ 100 mls/hr IV Q8H [facility] Last Infusion: 10/10/23 04:29 Dose: Infused Documented By: YG Ceftriaxone Sodium 1 gm/ (Sodium Chloride) 50 mls @ 100 mls/hr IV Q24H [facility] Last Infusion: 10/10/23 03:14 Dose: Infused Documented By: YG Doxycycline Hyclate 100 mg/ (Sodium Chloride) 250 mls @ 166.67 mls/hr IV Q12H [facility] Lactated Ringer's (Lr) 1,000 mls @ 80 mls/hr IVCONT .[id number] [facility] Last Admin: 10/10/23 02:30 Dose: 80 mls/hr Documented By: YG Magnesium Hydroxide (Milk Of Magnesia 30 Ml Oral.Susp) 30 ml PO DAILY PRN PRN Reason: Constipation Melatonin (Melatonin 3 Mg Tablet) 6 mg PO BEDTIME PRN PRN Reason: Insomnia Ondansetron HCl (Ondansetron Hcl 4 Mg/2 Ml Vial) 4 mg IVPUSH Q6H PRN PRN Reason: Nausea and Vomiting Last Admin: 10/10/23 07:34 Dose: 4 mg Documented By: JASSON Oxycodone HCl (Oxycodone Hcl Immed Release 5 Mg Tablet) 5 mg PO Q6H PRN PRN Reason: Pain, Severe (Pain Scale 7-10) Last Admin: 10/10/23 00:15 Dose: 5 mg Documented By: YG Polyethylene Glycol (Polyethylene Glycol 3350 17 Gm Powd.Pack) 17 gm PO DAILY [facility] Last Admin: 10/09/23 11:49 Dose: 17 gm Documented By: GUILHERME Sodium Chloride (0.9 % Sodium Chloride Flush 3 Ml Syringe) 3 ml IVFLUSH QSHIFT [facility] Last Admin: 10/10/23 07:37 Dose: 3 ml Documented By: JASSON Labs 10/10/23 05:53 10/10/23 05:53 Labs: Laboratory Results - last 24 hr 10/09/23 10/09/23 10/09/23 02:32 10:50 10:51 MCV 86.4 MCH 29.2 MCHC 33.8 RDW 15.0 Plt Count 156 L MPV 9.8 Immature Gran % (Auto) 0.6 H Neut % (Auto) 88.0 H Lymph % (Auto) 7.6 L Cross % (Auto) 3.4 Eos % (Auto) 0.0 Baso % (Auto) 0.4 Lymph # (Auto) 0.8 L Cross # (Auto) 0.4 Eos # (Auto) 0.0 Baso # (Auto) 0.0 Abs Immat Gran (auto) 0.06 H Absolute Neuts (auto) 9.2 H Absolute Nucleated RBC 0.000 Nucleated RBC % (auto) 0.0 VBG pH VBG pCO2 VBG pO2 VBG HCO3 VBG O2 Saturation VBG Base Excess Anion Gap 16 Estim Creat Clear Calc 66.9 Estimated GFR > 60 Random Glucose 105 Lactic Acid 0.8 Calcium 8.0 L D Total Bilirubin 1.0 Direct Bilirubin 0.7 H AST 238 H ALT 231 H Alkaline Phosphatase 233 H Total Creatine Kinase Total Protein 5.9 L Albumin 3.3 L Acetaminophen < 3 T.pallidum Ab (EIA) Nonreactive Hepatitis A IgM Ab Nonreactive Hep Bs Antigen Negative Hep Bs Antibody NONREACTIVE Hep B Core Total Ab Nonreactive Hepatitis C Ab (EIA) Nonreactive HIV 1&2 Ab/P24 Ag 4thGn Nonreactive 10/09/23 10/09/23 10/10/23 11:45 11:53 05:53 MCV 85.9 MCH 28.3 MCHC 33.0 RDW 15.6 Plt Count 170 MPV 10.8 Immature Gran % (Auto) 0.6 H Neut % (Auto) 61.2 Lymph % (Auto) 31.3 Cross % (Auto) 5.5 Eos % (Auto) 1.0 Baso % (Auto) 0.4 Lymph # (Auto) 2.3 Cross # (Auto) 0.4 Eos # (Auto) 0.1 Baso # (Auto) 0.0 Abs Immat Gran (auto) 0.04 H Absolute Neuts (auto) 4.4 Absolute Nucleated RBC 0.000 Nucleated RBC % (auto) 0.0 VBG pH 7.36 VBG pCO2 36 VBG pO2 29 VBG HCO3 20 L VBG O2 Saturation 47.0 VBG Base Excess -4.1 Anion Gap 13 Estim Creat Clear Calc 83.9 Estimated GFR > 60 Random Glucose 76 Lactic Acid Calcium 7.8 L Total Bilirubin 0.5 Direct Bilirubin 0.3 AST 132 H ALT 153 H Alkaline Phosphatase 168 H Total Creatine Kinase 186 H Total Protein 5.4 L Albumin 3.3 L Acetaminophen T.pallidum Ab (EIA) Hepatitis A IgM Ab Hep Bs Antigen Hep Bs Antibody Hep B Core Total Ab Hepatitis C Ab (EIA) HIV 1&2 Ab/P24 Ag 4thGn Microbiology Microbiology Results: Microbiology 10/09/23 02:32 Blood Culture - Preliminary Blood - Venous No growth after 24 hours. 10/09/23 02:32 Blood Culture - Preliminary Blood - Venous No growth after 24 hours. Assessment and Plan (1) IUD (intrauterine device) in place: Status: Acute Plan 48 year old female with no significant past medical history except for recurrent UTi and recurrent vaginal candidiasis infections admitted for further management of PID with severe sepsis Acute pelvic inflammatory disease with severe sepsis. Sepsis resolved febrile to 103, tachycardic and tachypneic. Met severe sepsis criteria at 947 am with decrease in SBP >40, 2L IVF (30cc/kg bolus) Neg gonorrhea/chlamydia. Trich neg, +BV, +Stephenie. +cervical motion tenderness on exam and yellow dc CT abd/pelvis and trans vag us shows small amt of free fluid. OBGYN following>IUD removed today (pt to use other form if bc) continue abx for 48-72 hrs then dc with doxycycline 100 mg b.i.d., Flagyl 500 mg b.i.d. for total of 14 days, follow-up with display artist in 2 weeks Elevated LFTs, trending down Unknown etiology Tylenol level <3 hep panel negative viral panel pending GI following Acute metabolic acidosis likely due to sepsis. VBG 7.36/36// continue IVF Constipation add miralax DVT prophylaxis- lovenox Attending Dr. Hill Full code Quality Stroke Does the patient have a stroke diagnosis?: No VTE Prior VTE?: No VTE Risk Level:: Medical - moderate - high VTE Device Contraindication: Treatment Not Indicated VTE Drug Contraindication: N/A - Med Ordered
[2023-10-10 10:55] VITALS: BP 126/66; PULSE 80; RESP 18; TEMP 36.7; O2SAT 97
[2023-10-10] MEDS: Enoxaparin Sodium 40 MG/0.4 ML SYRINGE SUBCUT (11:09)
[2023-10-10] MEDS: polyethylene glycoL 3350 17 GM POWD.PACK PO (11:11)
[2023-10-10 11:42] LABS: Adenovirus PCR Not Detected (Not Detect.); Bordetella parapertussis PCR Not Detected (Not Detect.); Bordetella pertussis PCR Not Detected (Not Detect.); Chlamydia pneumoniae PCR Not Detected (Not Detect.); Coronavirus 229E PCR Not Detected (Not Detect.); Coronavirus HKU1 PCR Not Detected (Not Detect.); Coronavirus NL63 PCR Not Detected (Not Detect.); Coronavirus OC43 PCR Not Detected (Not Detect.); Human metapneumovirus PCR Not Detected (Not Detect.); Influenza A PCR Not Detected (Not Detect.); Influenza B PCR Not Detected (Not Detect.); Mycoplasma pneumoniae PCR Not Detected (Not Detect.); Parainfluenza 1 PCR Not Detected (Not Detect.); Parainfluenza 2 PCR Not Detected (Not Detect.); Parainfluenza 3 PCR Not Detected (Not Detect.); Parainfluenza 4 PCR Not Detected (Not Detect.); RSV PCR Not Detected (Not Detect.); Rhino/Enterovirus PCR Not Detected (Not Detect.)
--- NOTE | 2023-10-10 11:46 | PC.NURSE ---
Pt reported some SOb ,Oxygen saturation 85% on RA , oxygenations didn't improve after deep breathing and IS use, Oxygen 2L via NC applied, MD was notified , Oxygen saturation 99% on 2 liter NC .
[2023-10-10 12:03] LABS: SARS-CoV-2 PCR Not Detected (Not Detect.)
--- NOTE | 2023-10-10 13:41 | MHC.CM.PN ---
Pt self-care, lives at home with her , and adult son and daughter. Pts son to transport her home. New HCP completed with pt, now on file. PCP: Azalia DENNISON
[2023-10-10 15:58] VITALS: BP 134/68; PULSE 72; RESP 18; TEMP 36.3; O2SAT 98
[2023-10-10] MEDS: Doxycycline Hyclate 100 MG in 0.9 % Sodium Chloride 250 ML 166.67 MG IV (16:23)
[2023-10-10 19:33] VITALS: BP 124/60; PULSE 84; RESP 20; TEMP 36.5; O2SAT 94
[2023-10-10] MEDS: Melatonin 3 MG TABLET 6 MG PO (22:17)
[2023-10-11] VITALS (7 sets, daily range): BP systolic 106–139; BP diastolic 53–79; PULSE 68–73; RESP 18–20; TEMP 36–36.5; O2SAT 95–99
[2023-10-11] MEDS: cefTRIAXone sodium 1 GM in 0.9 % Sodium Chloride 50 ML IV (02:01)
[2023-10-11] MEDS: Lactated Ringers 1,000 ML 80 ML IVCONT (02:01)
[2023-10-11] MEDS: Acetaminophen 325 MG TABLET 650 MG PO ×2 (02:08→18:04)
[2023-10-11] MEDS: metroNIDAZOLE/NS 500 MG/100 ML PIGGYBACK 100 MG IV ×3 (03:03→21:37)
[2023-10-11] MEDS: Doxycycline Hyclate 100 MG in 0.9 % Sodium Chloride 250 ML 166.67 MG IV ×2 (04:37→15:44)
[2023-10-11 07:09] LABS: Alanine Aminotransferase 114 U/L (0-31); Albumin Level 3.3 g/dL (3.5-5.0); Alkaline Phosphatase 153 U/L (39-117); Aspartate Amino Transferase 73 U/L (5-31); Bilirubin Direct 0.2 mg/dL (0.0-0.5); Bilirubin Total 0.4 mg/dL (0.0-1.0); Total Protein 5.7 g/dL (6.5-8.0)
[2023-10-11] MEDS: Enoxaparin Sodium 40 MG/0.4 ML SYRINGE SUBCUT (08:13)
[2023-10-11] MEDS: polyethylene glycoL 3350 17 GM POWD.PACK PO (08:14)
--- NOTE | 2023-10-11 10:11 | P.PNIM_ITS ---
Subjective Subjective Date of Service: 10/11/23 Interval History: Being followed for PID/severe sepsis Patient feeling better this morning denies fever, no chills, no nausea, no vomiting no pelvic pain or discharge, no acute events overnight. Review of Systems All other system reviewed and are negative. Physical Exam 2 Vital Signs: Vital Signs: Last Vital Signs Temp 97.7 F 10/11/23 07:00 Pulse 71 10/11/23 07:00 Resp 18 10/11/23 07:00 BP 125/58 L 10/11/23 07:00 Pulse Ox 98 10/11/23 07:00 O2 Del Method Room Air 10/11/23 07:00 O2 Flow Rate 2 10/10/23 19:33 BMI result Body Mass Index 28.6 Const: Other: General awake alert x3, in no acute distress. Neck no JVD. CVS regular rate rhythm, Respiratory lungs clear to auscultation, no respiratory distress, no wheeze, no rhonchi. Gastrointestinal abdomen soft, non tender, bowel sounds audible, no guarding , no rigidity. Extremities no edema. Neuro non focal Skin no rash Psych appropriate affect Objective Data Active Medications Acetaminophen (Acetaminophen 325 Mg Tablet) 650 mg PO Q6H PRN PRN Reason: Pain, Mild (Pain Scale 1-3), fever or headache Last Admin: 10/11/23 02:08 Dose: 650 mg Documented By: MIYA Calcium Carbonate (Calcium Carbonate 750 Mg Tab.Chew) 750 mg PO Q4H PRN PRN Reason: Heartburn Enoxaparin Sodium (Enoxaparin Sodium 40 Mg/0.4 Ml Syringe) 40 mg SUBCUT Q24H [facility] Last Admin: 10/11/23 08:13 Dose: 40 mg Documented By: DONNY Metronidazole (Flagyl) 500 mg in 100 mls @ 100 mls/hr IV Q8H [facility] Last Infusion: 10/11/23 04:05 Dose: Infused Documented By: MIYA Ceftriaxone Sodium 1 gm/ (Sodium Chloride) 50 mls @ 100 mls/hr IV Q24H [facility] Last Infusion: 10/11/23 02:45 Dose: Infused Documented By: MIYA Doxycycline Hyclate 100 mg/ (Sodium Chloride) 250 mls @ 166.67 mls/hr IV Q12H [facility] Last Infusion: 10/11/23 09:42 Dose: Infused Documented By: DONNY Lactated Ringer's (Lr) 1,000 mls @ 80 mls/hr IVCONT .[id number] [facility] Last Admin: 10/11/23 02:01 Dose: 80 mls/hr Documented By: MIYA Magnesium Hydroxide (Milk Of Magnesia 30 Ml Oral.Susp) 30 ml PO DAILY PRN PRN Reason: Constipation Melatonin (Melatonin 3 Mg Tablet) 6 mg PO BEDTIME PRN PRN Reason: Insomnia Last Admin: 10/10/23 22:17 Dose: 6 mg Documented By: MIYA Comments: for sleep Ondansetron HCl (Ondansetron Hcl 4 Mg/2 Ml Vial) 4 mg IVPUSH Q6H PRN PRN Reason: Nausea and Vomiting Last Admin: 10/10/23 07:34 Dose: 4 mg Documented By: JASSON Oxycodone HCl (Oxycodone Hcl Immed Release 5 Mg Tablet) 5 mg PO Q6H PRN PRN Reason: Pain, Severe (Pain Scale 7-10) Last Admin: 10/10/23 00:15 Dose: 5 mg Documented By: YG Polyethylene Glycol (Polyethylene Glycol 3350 17 Gm Powd.Pack) 17 gm PO DAILY [facility] Last Admin: 10/11/23 08:14 Dose: 17 gm Documented By: DONNY Sodium Chloride (0.9 % Sodium Chloride Flush 3 Ml Syringe) 3 ml IVFLUSH QSHIFT [facility] Last Admin: 10/11/23 08:18 Dose: Not Given Documented By: DONNY Non-Admin Reason: lr going 80ml Labs 10/10/23 05:53 10/10/23 05:53 Labs: Laboratory Results - last 24 hr 10/09/23 10/11/23 14:14 06:44 Hold Purple Top SEE NOTE Total Bilirubin 0.4 Direct Bilirubin 0.2 AST 73 H ALT 114 H Alkaline Phosphatase 153 H Total Protein 5.7 L Albumin 3.3 L Respiratory Panel Baker See Note Adenovirus (Rapid PCR) Not Detected B.pert (TEM-PCR) Not Detected B.parapertussis DNA PCR Not Detected C. pneumoniae DNA (PCR) Not Detected Coronavirus OC43 (PCR) Not Detected Coronavirus HKU1 (PCR) Not Detected Coronavirus 229E (PCR) Not Detected Coronavirus NL63 (PCR) Not Detected Human Metapneumovir PCR Not Detected Influenza A (RT-PCR) Not Detected Influenza B (RT-PCR) Not Detected M. pneumoniae (PCR) Not Detected Parainfluenza 1 (PCR) Not Detected Parainfluenza 2 (PCR) Not Detected Parainfluenza 3 (PCR) Not Detected Parainfluenza 4 (PCR) Not Detected RSV (PCR) Not Detected Entero/Rhino (PCR) Not Detected SARS-CoV-2 RNA (RT-PCR) Not Detected Microbiology Microbiology Results: Microbiology 10/10/23 09:30 Gram Stain - Final Uterus Routine Culture - Preliminary Culture in progress. 10/09/23 02:32 Blood Culture - Preliminary Blood - Venous No growth after 48 hours. 10/09/23 02:32 Blood Culture - Preliminary Blood - Venous No growth after 48 hours. Assessment and Plan (1) Bacterial vaginosis: Status: Acute (2) Acute pelvic inflammatory disease: Status: Acute (3) Abnormal liver function test: Status: Acute Plan 48 year old female with no significant past medical history except for recurrent UTi and recurrent vaginal candidiasis infections admitted for further management of PID with severe sepsis Acute pelvic inflammatory disease with severe sepsis. Sepsis resolved No recurrent fevers, no discharge Neg gonorrhea/chlamydia. Trich neg, +BV, +Stephenie. CT abd/pelvis and trans vag us shows small amt of free fluid. OBGYN following>IUD removed 10/09 (pt to use other form if bc) continue current IV abx for 1 more day then will discharge on doxycycline 100 mg b.i.d., Flagyl 500 mg b.i.d. for total of 14 days, follow-up with geometry teacher in 2 weeks Elevated LFTs, trending down Tylenol level <3 hep panel negative viral panel negative Likely due to sepsis Acute metabolic acidosis likely due to sepsis. Improved Constipation continue MiraLax last bowel movement 2nd DVT prophylaxis- lovenox Full code Will need continued inpatient hospitalization for IV antibiotics for PID. Quality Stroke Does the patient have a stroke diagnosis?: No VTE Prior VTE?: No VTE Risk Level:: Medical - moderate - high VTE Device Contraindication: Treatment Not Indicated VTE Drug Contraindication: N/A - Med Ordered
--- NOTE | 2023-10-11 12:14 | MHC.CM.PN ---
EMR REVIEWED, PT W/PID/SEVERE SEPSIS, PER HOSPITALIST NOTE PT WILL REMAIN INPT FOR IV ABX D/T PID, ANTIC PT WILL DC HOME SELF CARE ONCE MEDICALLY CLEARED, CM WILL CONT TO FOLLOW DC NEEDS.
[2023-10-12] MEDS: cefTRIAXone sodium 1 GM in 0.9 % Sodium Chloride 50 ML IV (03:12)
[2023-10-12 03:20] VITALS: BP 125/61; PULSE 70; RESP 20; TEMP 36.6; O2SAT 98
[2023-10-12] MEDS: metroNIDAZOLE/NS 500 MG/100 ML PIGGYBACK 100 MG IV ×2 (04:07→11:29)
[2023-10-12] MEDS: Doxycycline Hyclate 100 MG in 0.9 % Sodium Chloride 250 ML 166.67 MG IV (04:07)
[2023-10-12 06:51] LABS: Hematocrit 33.7 % (37.0-47.0); Hemoglobin 11.6 g/dl (12.0-16.0); Mean Corpuscular HGB Conc 34.4 g/dl (31.0-35.0); Mean Corpuscular Hemoglobin 28.6 pg (27.0-33.0); Mean Platelet Volume 10.2 fL (9.4-12.3); Platelet Count 296 X10*3/uL (160-400); Red Blood Count 4.06 X10*6/uL (4.20-5.50); White Blood Count 8.7 X10*3/uL (4.8-10.8)
[2023-10-12 07:10] VITALS: BP 129/69; PULSE 72; RESP 18; TEMP 36.8; O2SAT 97
[2023-10-12 07:17] LABS: Anion Gap 14 (12-20); Blood Urea Nitrogen 6 mg/dL (9-16); Calcium 9.1 mg/dL (8.4-10.2); Carbon Dioxide 25 mmol/L (22-29); Chloride 103 mmol/L (96-108); Estimated Glomerular Filt Rate > 60; Glucose Random 95 mg/dL (60-115); Potassium 2.9 mmol/L (3.3-5.1); Sodium 139 mmol/L (135-145)
[2023-10-12] MEDS: Enoxaparin Sodium 40 MG/0.4 ML SYRINGE SUBCUT (08:55)
[2023-10-12] MEDS: 0.9 % Sodium Chloride Flush 3 ML SYRINGE IVFLUSH (08:55)
[2023-10-12] MEDS: polyethylene glycoL 3350 17 GM POWD.PACK PO (08:55)
[2023-10-12] MEDS: Potassium Chloride ER 20 MEQ TAB.ER.PRT 60 MEQ PO (09:05)
[2023-10-12 11:01] VITALS: BP 121/72; PULSE 81; RESP 18; TEMP 36.2; O2SAT 98
--- NOTE | 2023-10-12 11:40 | PM.DS ---
DS: Providers Provider Date of Service: 10/12/23 Date of admission: 10/09/23 10:00 Primary care physician: Azalia Emanuel NP Consults: 10/09/23 10:28 Consult to Gastroenterology Routine Consulting Provider: Isidro Ramirez Reason for consultation: significantly elevated LFTs in setting of CLINICAL SOCIAL WORKER infection- ?[id number]? 10/09/23 10:33 Consult to Obstetrics / Gynecology Routine Consulting Provider: Mac Thompson Reason for consultation: PID, IUD DS: Diagnosis Discharge Diagnosis (1) Bacterial vaginosis: Status: Acute (2) Acute pelvic inflammatory disease: Status: Acute (3) Abnormal liver function test: Status: Acute DS: Summary Hospital Course Hospital Course: Date of Service: 10/09/23 Attending physician on admission: Karl Saldivarva [facility] Chief Complaint: fevers, vaginal discharge 48 year old female with no significant past medical history except for recurrent UTi and recurrent vaginal candidiasis infections presented to the ED late last night for evaluation of fevers with rigors, malaise, myaglias that started 5 days ago. She states the next day developed vaginal soreness, RLQ pain, and yellow foul smelling vaginal discharge. She has had decreased appetite but no nausea and vomiting. She has one sexual partner and reports both are monogamous with each other. She does have an IUD in place for over 5 years and reports it was supposed to have already been removed but is overdue. She reports she had her first menstrual period last week since insertion of the IUD. No intercourse in 1 week and denies dyspareunia at that time. No OBGYN, reports her PCP manages her senior engineering specialist care at [facility]. No st, congestion, nausea, vomiting, dysuria, hematuria, increased urinary frequency, cough, sob, wheezing, or chest pain. Since arrival, has been febrile to 103, tachycardic to 118, tachypneic to 36, blood pressures soft at the time but no hypotension. She was given 2L with improvement in SBP to 142/67, on admission BP 93/52, meeting severe sepiss criteria. Lactic acid WNL, blood cultures pending. Renal function WNL, lytes normal. No leukocytosis. Total bili 0.9, AST 634, ALT 373, Alk phos 327. UA with elevated SG, 1+ protein, 2+ blood, trace leuks, no pyuria, neg bacteria. Neg for vale/chlamydia. +BV and +ally. Trich, HIV, syphillis, and Hep a/b/c pending. CT abd/pelvis showsretained stool, small amount of free fluid w/i pelvis, IUD in place, and smally partially calcified fibroid. In the ED, given 2L IVF, IV doxy, IV ctx, IV flagyl, tylenol, and ketorolac. No illicit drugs, alcohol, or cigarettes. Hospital course: 48 year old female with no significant past medical history except for recurrent UTi and recurrent vaginal candidiasis infections admitted for further management of PID with severe sepsis, workup showed negative gonorrhea, chlamydia and trichomoniasis, but noted to have positive bacterial vaginosis and Ally, CT abdomen and pelvis and transvaginal ultrasound showed small amount of free fluid and uterine myoma, patient treated with fluconazole 150 mg for vulvo vaginal candidiasis, she was treated with IV ceftriaxone, doxycycline and metronidazole, with good response, was followed closely by OBGYN, they recommended 2 weeks of Flagyl and doxycycline upon discharge, patient abdominal pain and discharge resolved, she is hemodynamically stable, tolerating diet ,therefore being discharged home with strong recommendations to follow-up with OBGYN as outpatient to undergo further workup for abnormal uterine bleeding, and for uterine myoma, also noted to have elevated LFTs, likely due to sepsis trending down, patient denies abdominal pain tolerated diet with no nausea vomiting, Tylenol level less than 3 hepatitis panel and viral panel negative, also noted to have acute metabolic acidosis due to sepsis improved.. Time Attestation Discharge Coordination Time (in mins): 40 Quality: Safe Use of Opioids Does Pt have an Active Cancer Diagnosis on the Problem List?: No Quality: Stroke Does the patient have a stroke diagnosis?: No Physical Exam Vital Signs: Vital Signs: Last Vital Signs Temp 97.1 F 10/12/23 11:01 Pulse 81 10/12/23 11:01 Resp 18 10/12/23 11:01 BP 121/72 10/12/23 11:01 Pulse Ox 98 10/12/23 11:01 O2 Del Method Room Air 10/12/23 11:01 O2 Flow Rate 2 10/10/23 19:33 BMI result Body Mass Index 28.6 Const: Other: General awake alert x3, in no acute distress. Neck no JVD. CVS regular rate rhythm, Respiratory lungs clear to auscultation, no respiratory distress, no wheeze, no rhonchi. Gastrointestinal abdomen soft, non tender, bowel sounds audible, no guarding , no rigidity. Extremities no edema. Neuro non focal Skin no rash Psych appropriate affect DS: Data Data Completed and Pending Labs on day of discharge: Laboratory Results - last 24 hr 10/12/23 06:20 WBC 8.7 RBC 4.06 L D Hgb 11.6 L D Hct 33.7 L D MCV 83.0 MCH 28.6 MCHC 34.4 RDW 15.0 Plt Count 296 D MPV 10.2 Absolute Nucleated RBC 0.000 Nucleated RBC % (auto) 0.0 Sodium 139 Potassium 2.9 L* Chloride 103 Carbon Dioxide 25 Anion Gap 14 BUN 6 L Creatinine 0.69 Estim Creat Clear Calc 90.0 Estimated GFR > 60 Random Glucose 95 Calcium 9.1 D Preliminary micro results at discharge 10/10/23 09:30 Routine Culture - Preliminary Uterus Yeast 10/09/23 02:32 Blood Culture - Preliminary Blood - Venous No growth after 48 hours. 10/09/23 02:32 Blood Culture - Preliminary Blood - Venous No growth after 48 hours. Discharge Plan Discharge Anticipated Discharge Date/Time: 10/12/23 11:20 Patient Disposition: Home, Self-Care Discharge Diagnosis: Pelvic inflammatory disease Referrals: Azalia Emanuel [employer] SET UP OPERATOR [employer] [Primary Care Provider] - 1 Week Discharge Medications: New metronidazole 500 mg tablet 500 mg PO BID Qty: 28 0RF doxycycline monohydrate 100 mg capsule 100 mg PO BID Qty: 28 0RF Discharge Orders: Discharge Order (Routine); Ordered 10/12/23 Ordered By: Fredy Espinoza Diet: Advance to usual diet Activity on Discharge: As tolerated Stand Alone Forms: Patient Portal Discharge page Print Language: Cambodian Care Plan Goals: Pelvic inflammatory disease take medications as prescribed and follow-up with OBGYN Returned to check with recurrent fevers, lower abdominal pain. Health Concerns: Take doxycycline 100 mg twice daily and Flagyl 500 mg 1 tablet twice daily for total 14 days Plan of Treatment: Outpatient follow-up with Dr. Jay mims gynecology in 2 weeks for abnormal uterine bleeding. And to have follow-up pelvic ultrasound Assessment: As above Discharge Date/Time: 10/12/23 12:52
[2023-10-12 11:44] LABS: Potassium 3.4 mmol/L (3.3-5.1)
--- NOTE | 2023-10-12 12:28 | MHC.CM.PN ---
Pt has been medically cleared for DC, she will go home via family transport, plan is Self care.
== END 2023-10-12 12:52 | disposition home or self-care (01) | DRG 720 ==
LOC: HO.ED 10-09 07:04 → HO.EDOVER 10-09 10:06 → HO.IMC 10-09 12:21
PROVIDERS: Internal Medicine; Nurse Practitioner Acute Care; Admitting Provider Physician Assistant; Emergency Provider Emergency Medicine Emergency Medical Services; PCP Nurse Practitioner Adult Health; Visit Provider Hospitalist
DX: A41.9 Sepsis, unspecified organism (principal); E87.21 Acute metabolic acidosis; K83.1 Obstruction of bile duct; K59.00 Constipation, unspecified; D25.9 Leiomyoma of uterus, unspecified; N93.9 Abnormal uterine and vaginal bleeding, unspecified; R79.89 Other specified abnormal findings of blood chemistry; N73.9 Female pelvic inflammatory disease, unspecified; N76.0 Acute vaginitis; R65.20 Severe sepsis without septic shock; B37.31 Acute candidiasis of vulva and vagina; Z97.5 Presence of (intrauterine) contraceptive device; Z87.440 Personal history of urinary (tract) infections
CPT/HCPCS: 0241U; 0352U; 36415; 71045; 74177; 76830; 76856; 80048; 80053; 80076; 80143; 81001; 82550; 82803; 83605; 83690; 84132; 84702; 85025; 85027; 86704; 86706; 86709; 86780; 86803; 87040; 87070; 87077; 87081; 87205; 87340; 87389; 87491; 87591; 87633; 99285; J0696; J1650; J1836; J1885; J2405; J7120; P9047; Q9967

== ENCOUNTER → 2023-10-09 10:00 | Outpatient (BNV) | payer MEDICAID, SELFPAY | PROVIDERS: Admitting Provider Physician Assistant; Emergency Provider Emergency Medicine Emergency Medical Services; Visit Provider Obstetrics & Gynecology | DX: N93.9 Abnormal uterine and vaginal bleeding, unspecified (principal); D25.9 Leiomyoma of uterus, unspecified; N73.0 Acute parametritis and pelvic cellulitis; B37.31 Acute candidiasis of vulva and vagina; R79.89 Other specified abnormal findings of blood chemistry; N76.0 Acute vaginitis; B96.89 Other specified bacterial agents as the cause of diseases classified elsewhere; Z30.432 Encounter for removal of intrauterine contraceptive device | CPT/HCPCS: 58301; 99222 ==

== ENCOUNTER → 2023-10-09 10:00 | Outpatient (BNV) | payer MEDICAID, SELFPAY | PROVIDERS: Admitting Provider Physician Assistant; Emergency Provider Emergency Medicine Emergency Medical Services; Visit Provider Internal Medicine Gastroenterology | DX: R79.89 Other specified abnormal findings of blood chemistry (principal) | CPT/HCPCS: 99222 ==

== ENCOUNTER → 2023-10-09 10:00 | Outpatient (BNV) | payer MEDICAID, SELFPAY | PROVIDERS: Admitting Provider Physician Assistant; Emergency Provider Emergency Medicine Emergency Medical Services; Visit Provider Nurse Practitioner Acute Care | DX: R79.89 Other specified abnormal findings of blood chemistry (principal); N73.0 Acute parametritis and pelvic cellulitis; N76.0 Acute vaginitis; B96.89 Other specified bacterial agents as the cause of diseases classified elsewhere; B37.31 Acute candidiasis of vulva and vagina | CPT/HCPCS: 99223; 99232; 99239 ==

== ENCOUNTER 2023-11-01 12:24 | Outpatient (AMB) | payer MEDICAID, SELFPAY ==
--- NOTE | 2023-11-01 12:29 | MHC.OFFVIS ---
Intake Visit Reasons: Hospital follow up/PID and EMB Allergies No Known Allergies Allergy (Verified 11/01/23 12:30) HPI Comments Details: Presenting for follow-up from hospital admission for PID. The patient has completed her antibiotic course of doxycycline and Flagyl. The patient has pelvic pain has improved markedly In addition the patient gives a history of abnormal uterine bleeding Last co testing was many years ago No recent mammogram Pelvic ultrasound showed the following: The uterus is of normal size and echogenicity measuring 9.2 x 4.9 x 6.2 cm. A regular homogeneous endometrium is identified measuring 0.6 cm. Trace possible fluid within the endometrial canal. Nabothian cysts in the cervix. Intrauterine device in place. A 1.8 cm partially pedunculated subserosal myoma in the right fundus of the uterus and a 1.3 cm subserosal myoma in the right body of the uterus. Both ovaries are of normal echogenicity. The right measures 4.4 x 2.9 x 3.1 cm for a volume of 20.7 mL. The right ovary is remarkable for a 3.3 cm benign functional cyst, no follow-up imaging recommended. Involuting physiologic right ovarian corpus luteum. The left measures 3.3 x 1.4 x 2.4 cm and is remarkable for a punctate nonspecific calcification. There is small to moderate volume simple pelvic and right adnexal free fluid. IUD was taken out in hospital after diagnosis of PID [facility] Medical History Recurrent UTI Vulvovaginal candidiasis Social History Household Members: Spouse Housing: Apartment Do you presently have visiting nurse or other home services: No Patient Tobacco Use Status: Never used Tobacco service: No Review of Systems Const All systems reviewed & are unremarkable except as noted in HPI and below Physical Exam GI Palpation (GI): Soft to palpation and nontender Percussion: Yes normal to percussion General: Yes no CVA tenderness External Female Exam: normal external appearance and normal appearance of the urethra Speculum Exam - Vagina: normal appearance of the vagina, normal palpation, no lesions and no masses Speculum Exam - Cervix: normal appearance of the cervix, normal palpation, no lesions, no masses and nontender Bimanual exam- vagina & uterus: normal bimanual exam, normal palpation, uterine size normal, normal palpation, uterine shape normal, No Cervical tenderness present and non-tender Bimanual Exam- Adnexa, other: normal adnexae Back/Spine/Pelvis Back: no CVA tenderness Results AMB Urinalysis, Automated UA Leukoctes 0 Eric/uL Last Edit by BHARATH Vergara on 11/01/23 12:39 UA Nitrite Negative Last Edit by Jaki Gee Flash on 11/01/23 12:39 UA Urobilinogen 0 mg/dL Last Edit by Jaki Gee [facility] on 11/01/23 12:39 UA Protein 0 mg/dL Last Edit by Jaki Gee [facility] on 11/01/23 12:39 UA pH 7.5 Last Edit by Jaki Gee [facility] on 11/01/23 12:39 UA Blood 0 Darryl/uL Last Edit by Jaki Gee Flash on 11/01/23 12:39 UA Specific Sycamore 1.015 Last Edit by Jaki Gee [facility] on 11/01/23 12:39 UA Ketone Negative Last Edit by Jaki Gee Flash on 11/01/23 12:39 UA Bilirubin 0 mg/dL Last Edit by Jaki Gee Flash on 11/01/23 12:39 UA Glucose 0 mg/dL Last Edit by Jaki Gee [facility] on 11/01/23 12:39 AMB Test Urine AMB Test Urine Negative Last Edit by Jaki Gee Flash on 11/01/23 12:39 Results Reviewed Results Reviewed: Laboratory Last Values Urine pH (Auto) 7.5 11/01/23 12:37 Specific Sycamore (Auto) 1.015 11/01/23 12:37 Urine Protein (Auto) 0 mg/dL 11/01/23 12:37 Glucose (UA)(Auto) 0 mg/dL 11/01/23 12:37 Urine Ketones (Auto) Negative 11/01/23 12:37 Urine Blood (Auto) 0 Darryl/uL 11/01/23 12:37 Urine Nitrite (Auto) Negative 11/01/23 12:37 Urine Bilirubin (Auto) 0 mg/dL 11/01/23 12:37 Urine Urobilinogen (Auto) 0 mg/dL 11/01/23 12:37 Leukocyte Esterase (Auto) 0 Eric/uL 11/01/23 12:37 Tst Clinic Negative 11/01/23 12:37 Assessment & Plan Assessment & Plan (1) Uterine myoma: Code(s): D25.9 - Leiomyoma of uterus, unspecified Category: Medical Plan: Discussed with the patient the results of the ultrasound and the size of the myomas. Discussed with the patient risk of myosarcoma and symptoms that are caused by myomas including but not limited to pelvic pain, pressure symptoms, abnormal uterine bleeding. In addition discussed with the patient options of treatment for myomas including: Serial ultrasounds periodically to follow-up on the size of the myoma while targeting the treatment against fibroids related symptoms ( control pills, Mirena IUD, progesterone treatment, GnRH agonist/antagonist, uterine artery embolization or endometrial ablation) versus surgical treatment including hysterectomy and or myomectomy. All pros and cons, risks and benefits of all options were discussed with the patient. The patient understands that delay in surgical treatment in case of myosarcoma can affect her prognosis, after further discussion, the patient decided to think about it and get back to us next visit (2) Abnormal uterine bleeding: Code(s): N93.9 - Abnormal uterine and vaginal bleeding, unspecified Category: Medical Plan: Co testing done, GC and chlamydia were recently taken and were negative, CBC, TSH, prolactin, HCG, ordered. Discussed with the patient the different causes of abnormal bleeding including thyroid disorders, uterine and ovarian pathology, endometrial hyperplasia, carcinoma and other potential causes. Discussed with the patient the work up including CBC (to r/o anemia), TSH, prolactin, pelvic Ultrasound, endometrial biopsy to r/o endometrial pathology. EMB done, see procedure note All questions answered and the patient verbalized understanding. Instructed the patient to schedule a follow-up appointment in 2 weeks. (3) Acute pelvic inflammatory disease: Code(s): N73.0 - Acute parametritis and pelvic cellulitis Category: Medical Plan: Abdominal and pelvic exam within normal, patient completed her antibiotic course, the patient was reassured. Instructions given the patient to call in case of recurrence of her pelvic pain, fever above 100.4, nausea or vomiting. Orders: Orders AMB Urinalysis Automated Today Z87.440 - Personal history of urinary (tract) infections PAP + HPV E6/E7 rfx 18/45 Today N93.9 - Abnormal uterine and vaginal bleeding, unspecified TSH reflex Free T4 Today N93.9 - Abnormal uterine and vaginal bleeding, unspecified HCG Quantitative Today N93.9 - Abnormal uterine and vaginal bleeding, unspecified Prolactin Today N93.9 - Abnormal uterine and vaginal bleeding, unspecified Complete Blood Count no Diff Today N93.9 - Abnormal uterine and vaginal bleeding, unspecified Follicle Stimulating Hormone Today N93.9 - Abnormal uterine and vaginal bleeding, unspecified MM screening mammo BI Today Z12.31 - Encounter for screening mammogram for malignant neoplasm of breast AMB HCG Urine Test Today N93.9 - Abnormal uterine and vaginal bleeding, unspecified Surgical Today N93.9 - Abnormal uterine and vaginal bleeding, unspecified Lutenizing Hormone Today N93.9 - Abnormal uterine and vaginal bleeding, unspecified Coding Level of Care Code Est Pt Level 3 (72917) Diagnoses Uterine myoma D25.9 Abnormal uterine bleeding N93.9 Acute pelvic inflammatory disease N73.0
== END 2023-11-01 13:03 | disposition home or self-care (01) ==
PROVIDERS: Visit Provider Obstetrics & Gynecology
DX: D25.9 Leiomyoma of uterus, unspecified (principal); N93.9 Abnormal uterine and vaginal bleeding, unspecified; N73.0 Acute parametritis and pelvic cellulitis; Z87.440 Personal history of urinary (tract) infections
CPT/HCPCS: 99213

== ENCOUNTER 2023-11-01 12:24 | Outpatient (REF) | payer MEDICAID, SELFPAY ==
[2023-11-01 14:01] LABS: Hematocrit 36.1 % (37.0-47.0); Hemoglobin 12.1 g/dl (12.0-16.0); Mean Corpuscular HGB Conc 33.5 g/dl (31.0-35.0); Mean Corpuscular Hemoglobin 29.1 pg (27.0-33.0); Mean Corpuscular Volume 86.8 fL (80.0-98.0); Mean Platelet Volume 10.7 fL (9.4-12.3); Platelet Count 223 X10*3/uL (160-400); Red Blood Count 4.16 X10*6/uL (4.20-5.50); Red Cell Distribution Width 15.8 % (11.0-16.0); White Blood Count 8.2 X10*3/uL (4.8-10.8)
[2023-11-01 14:54] LABS: HCG Quantitative < 2 mIU/mL; TSH reflex Free T4 1.02 uIU/mL (0.32-4.0)
[2023-11-02 08:43] LABS: Follicle Stimulating Hormone 6.4 mIU/mL; Lutenizing Hormone 4.7 mIU/mL; Prolactin 6.7 ng/mL
[2023-11-03 22:23] LABS: HPV mRNA E6/E7 Not Detected (Not Detected)
== END 2023-11-01 12:25 | disposition home or self-care (01) ==
LOC: HO.LAB 12:24
PROVIDERS: Visit Provider Obstetrics & Gynecology
DX: N93.9 Abnormal uterine and vaginal bleeding, unspecified (principal); Z87.440 Personal history of urinary (tract) infections; D25.9 Leiomyoma of uterus, unspecified; N73.0 Acute parametritis and pelvic cellulitis
CPT/HCPCS: 36415; 81003; 81025; 83001; 83002; 84146; 84443; 84702; 85027; 87624; 88175; 88305; 99212

== ENCOUNTER 2023-11-06 14:43 | Outpatient (AMB) | payer MEDICAID, SELFPAY ==
--- NOTE | 2023-11-06 15:20 | A.OFFVIS_ITS ---
Vital Signs 11/06/23 15:21 Height 5 ft 2 in Weight 144 lb BMI 26.3 BP 122/82 Intake Visit Reasons: EMB results Pediatric Neurologist Required: No Information Interpreted: non-clinical & clinical Accompanied by: Self / Same As Patient Allergies No Known Allergies Allergy (Verified 11/06/23 15:30) HPI Comments Details: The patient is presenting for follow-up to discuss the results of her abnormal uterine bleeding workup and options of treatment. The following workup was done.: H&H= 12.1/36.1 FSH/LH= 6.4/4.7 TSH, prolactin, hCG, GC and chlamydia were negative. Endometrial biopsy pathology showed the following: Early secretory endometrium with stromal breakdown; negative for atypia, hyperplasia or malignancy Co testing was done was negative. Pelvic ultrasound showed the following: IMPRESSION: 1. Small to moderate volume simple pelvic and right adnexal free fluid, common nonspecific but can be seen in the setting of ovarian cyst rupture. 2. Intrauterine device in place. 3. A 1.8 cm partially pedunculated subserosal myoma in the right fundus and a 1.3 cm subserosal myoma in the right body of the uterus. 4. The right ovary is remarkable for a 3.3 cm benign functional cyst, no follow-up imaging recommended. Mirena IUD was taken out urine PID hospitalization [facility] Medical History Recurrent UTI Vulvovaginal candidiasis Social History Household Members: Spouse Housing: Apartment Do you presently have visiting nurse or other home services: No Patient Tobacco Use Status: Never used Tobacco service: No Review of Systems Const All systems reviewed & are unremarkable except as noted in HPI and below Reports as per HPI and Reports no additional complaints GI Reports no additional complaints Reports no additional complaints Physical Exam Vital Signs: Last Vital Signs BP 122/82 11/06/23 15:21 BMI result Body Mass Index 26.3 Assessment & Plan Assessment & Plan (1) Abnormal uterine bleeding: Comment: History of PID on 10/10/23 Code(s): N93.9 - Abnormal uterine and vaginal bleeding, unspecified Category: Medical Plan: Discussed with the patient the results of the work up done and options of treatment including Lysteda, control pills, Mirena IUD, endometrial ablation and hysterectomy. All pros, cons, risks and benefits if each option was discussed with the patient and the patient decided to go ahead with Mirena IUD so a more detailed discussion about it was conducted including mechanism of action, risks (uterine perforation, infection, injury to bladder, bowel, displacement, and others) benefits (hypo menorrhea, amenorrhea, ...). GC/CT will be taken in 3 months and the patient was instructed to schedule Mirena IUD insertion on day 1-5 of next cycle after 12 weeks of PID treatment . Meanwhile instructions given the patient to use a backup method for control to prevent . All questions answered, the patient verbalized understanding Medications: Discontinued doxycycline monohydrate Discontinued Reason: Patient Completed Course 100 mg PO BID 28 caps 0RF metronidazole Discontinued Reason: Patient Completed Course 500 mg PO BID 28 tabs 0RF Coding Level of Care Code Est Pt Level 3 (86554) Diagnoses Abnormal uterine bleeding N93.9
[2023-11-06 15:21] VITALS: BP 122/82; BMI 26.3
== END 2023-11-06 15:40 | disposition home or self-care (01) ==
LOC: HO.HWS 14:43
PROVIDERS: Visit Provider Obstetrics & Gynecology
DX: N93.9 Abnormal uterine and vaginal bleeding, unspecified (principal)
CPT/HCPCS: 99213

== ENCOUNTER → 2023-11-06 14:43 | Outpatient (BNVA) | payer MEDICAID, SELFPAY | PROVIDERS: Visit Provider Obstetrics & Gynecology | DX: N93.9 Abnormal uterine and vaginal bleeding, unspecified (principal) | CPT/HCPCS: 99212 ==

== ENCOUNTER 2024-02-08 07:30 | Outpatient (AMB) | payer MEDICAID, SELFPAY ==
[2024-02-08 07:31] VITALS: BP 108/60; BMI 26.3
--- NOTE | 2024-02-08 07:31 | MHC.OFFVIS ---
Vital Signs 02/08/24 07:31 Height 5 ft 2 in Weight 144 lb BMI 26.3 BP 108/60 Intake Visit Reasons: Mirena insertion/ gc swab/DO NOT RS Inspectors And Regulatory Officers Required: No Information Interpreted: non-clinical & clinical Transfer Pumper: Transfer Pumper Present (Liset Rusty SINHA) Accompanied by: Self / Same As Patient Allergies No Known Allergies Allergy (Verified 02/08/24 07:32) Is last menstrual period known: Yes Last menstrual period: 01/21/24 HPI Comments Details: Presenting for IUD insertion [facility] Medical History Recurrent UTI Vulvovaginal candidiasis Social History Household Members: Spouse Housing: Apartment Do you presently have visiting nurse or other home services: No Patient Tobacco Use Status: Never used Tobacco service: No Female Reproductive History Menstrual Date of last menstrual period: 01/21/24 Review of Systems Const All systems reviewed & are unremarkable except as noted in HPI and below Reports as per HPI and Reports no additional complaints GI Reports no additional complaints Reports no additional complaints Physical Exam Vital Signs: Last Vital Signs BP 108/60 02/08/24 07:31 BMI result Body Mass Index 26.3 Office Procedures IUD Insert/Removal Details Details: The patient is presenting for Mirena IUD insertion Urine test was done in the office and was negative; All the contraindications were excluded. The following possible complications were discussed with the patient: Intrauterine , Ectopic , Sepsis, Pelvic Infection, Irregular Bleeding and Amenorrhea, Perforation, Expulsion, Ovarian Cysts, Breast Cancer, The following adverse effects were discussed with the patient: alteration of menstrual bleeding pattern, including: unscheduled uterine bleeding decreased uterine bleeding increased scheduled uterine bleeding female genital tract bleeding ,amenorrhea , genital discharge , vulvovaginitis , breast pain , benign ovarian cyst and associated complications , dysmenorrhea , Gastrointestinal disorders abdominal/pelvic pain, headache/migraine , back pain , acne , depression Alternative options were discussed with the patient including but not limited: control pills, patch, NuvaRing, Depo-medroxyprogesterone acetate, Nexplanon, copper IUD, sterilization, vasectomy, others The procedure was explained in detail to patient , at the end patient signed the informed consent obtained. A no touch technique was used throughout the procedure. A speculum was placed into vagina and cervix was cleaned with betadine). A tenaculum was placed. A plastic sound was advanced through the external and internal os until it reached the fundus of the uterus, the depth was 8 cm. The sound was then withdrawn. The IUD was loaded in a sterile manner and advanced into position. The string was visualized and cut to 3 cm. Tenaculum site hemostatic. All instruments removed from vagina. Patient tolerated the procedure well. NO complications were noted. Patient was instructed to call for fever over 100.4, significant pain unrelieved by Motrin, IUD expulsion, heavy bleeding, or abnormal discharge. In addition, the following clinical considerations were discussed with the patient to call for removal: A stroke or heart attack ,Very severe or migraine headaches ,Unexplained fever ,Yellowing of the skin or whites of the eyes, as these may be signs of serious liver problems , or suspected , Pelvic pain or pain during sex ,HIV positive seroconversion in herself or her partner , Possible exposure to sexually transmitted infections Unusual vaginal discharge or genital sores , severe vaginal bleeding or bleeding that lasts a long time, or if she misses a menstrual period, Inability to feel Mirena's threads Counseled the patient that the IUD does not protect against STI's, recommended use of condoms for the first 7 days post insertion and explained to the patient that condoms are recommended for patients at risk for sexually transmitted infections. Informed the patient that Mirena IUD is FDA approved for 8 years for contraception for 5 years for the treatment of heavy menses Instructed the patient to schedule a Follow up appointment in 4 to 6 weeks following insertion. This note was generated with a voice recognition program. Some errors may have been overlooked during the review of this note. Sometimes these errors may affect the content or meaning of a given sentence. 44543-ADT Insertion Procedure code (CPT) selection complete Office Meds Mirena 21 mcg/24 hr (up to 8 years) 52 mg intrauterine device Performing Provider: Mac Thompson MD Performing Location: [facility] Documented (not given) by: Mac Thompson MD on 02/08/24 07:41 Dose Route Admin Location Dispensed Lot Number Expiration Date [facility] [employer] 1 device intrauterine ea Assessment & Plan Assessment & Plan (1) Abnormal uterine bleeding: Code(s): N93.9 - Abnormal uterine and vaginal bleeding, unspecified Category: Medical Plan: GC/CT taken. Urine test done in the office was negative. Mirena IUD inserted, see procedure note Orders: Orders AMB IUD Insertion/Removal - Practice Supplied Today Z30.430 - Encounter for insertion of intrauterine contraceptive device Medications: New Mirena (levonorgestrel) 1 device intrauterine ONCE 1 ea 0RF IUD insertion NS Z30.430 - Encounter for insertion of intrauterine contraceptive device Coding Level of Care Code Procedure Only Diagnoses Abnormal uterine bleeding N93.9 CPT Codes Details - CPT: 59032-SRZ Insertion ([id number])
== END 2024-02-08 11:05 | disposition home or self-care (01) ==
LOC: HO.HWS 07:30
PROVIDERS: Visit Provider Obstetrics & Gynecology
DX: Z30.430 Encounter for insertion of intrauterine contraceptive device (principal); N93.9 Abnormal uterine and vaginal bleeding, unspecified; Z32.02 Encounter for pregnancy test, result negative
CPT/HCPCS: 58300

== ENCOUNTER 2024-02-08 07:30 | Outpatient (REF) | payer MEDICAID, SELFPAY ==
[2024-02-08 14:01] LABS: CT PCR NOT DETECTED (Not Detect.); NG PCR NOT DETECTED (Not Detect.)
== END 2024-02-08 07:31 | disposition home or self-care (01) ==
LOC: HO.LNP 07:30
PROVIDERS: Visit Provider Obstetrics & Gynecology
DX: Z30.430 Encounter for insertion of intrauterine contraceptive device (principal)
CPT/HCPCS: 58300; 81025; 87491; 87591; J7298

== ENCOUNTER 2024-03-21 08:15 | Outpatient (AMB) | payer MEDICAID, SELFPAY ==
--- NOTE | 2024-03-21 08:28 | MHC.OFFVIS ---
Vital Signs 03/21/24 08:29 Height 5 ft 2 in Weight 144 lb BMI 26.3 Intake Visit Reasons: iud check Billet Worker Required: No Information Interpreted: non-clinical & clinical Rib Trim Separator: Rib Trim Separator Present (Liset SINHA) Accompanied by: Self / Same As Patient Allergies No Known Allergies Allergy (Verified 03/21/24 08:29) Is last menstrual period known: No (mirena) HPI Comments Details: The patient is presenting for IUD check after 1 st period following IUD insertion. The patient has no complaints PFSH Medical History Recurrent UTI Vulvovaginal candidiasis Social History Household Members: Spouse Housing: Apartment Do you presently have visiting nurse or other home services: No Patient Tobacco Use Status: Never used Tobacco service: No Review of Systems Const All systems reviewed & are unremarkable except as noted in HPI and below Physical Exam Vital Signs: BMI result Body Mass Index 26.3 General: Yes no CVA tenderness External Female Exam: normal external appearance and normal appearance of the urethra Speculum Exam - Vagina: normal appearance of the vagina, normal palpation, no lesions and no masses Speculum Exam - Cervix: normal appearance of the cervix, normal palpation, no lesions, no masses, nontender and Other cervical findings present (IUD string in place) Bimanual exam- vagina & uterus: normal bimanual exam, normal palpation, uterine size normal, normal palpation, uterine shape normal, No Cervical tenderness present and non-tender Bimanual Exam- Adnexa, other: normal adnexae Back/Spine/Pelvis Back: no CVA tenderness Results AMB Test Urine AMB Test Urine Negative Last Edit by Liset Ojeda CMA on 03/21/24 08:35 Results Reviewed Results Reviewed: Laboratory Last Values Tst Clinic Negative 03/21/24 08:34 Assessment & Plan Assessment & Plan (1) IUD check up: Code(s): Z30.431 - Encounter for routine checking of intrauterine contraceptive device Category: Medical Plan: UPT done in the office was negative. Discussed with the patient the finding on physical exam, IUD string in place, the patient was reassured. Instructions given to patient to call in case of temperature above 100.4, severe cramping/pelvic pain, abnormal discharge or abnormal uterine bleeding or if she misses her menstrual cycle. Otherwise follow-up at her annual exam appointment. All questions answered, the patient verbalized understanding. Orders: Orders AMB HCG Urine Test Today Z32.02 - Encounter for test, result negative Coding Level of Care Code Est Pt Level 3 (80998) Diagnoses IUD check up Z30.431
[2024-03-21 08:29] VITALS: BMI 26.3
== END 2024-03-21 08:43 | disposition home or self-care (01) ==
LOC: HO.HWS 08:15
PROVIDERS: Visit Provider Obstetrics & Gynecology
DX: Z30.431 Encounter for routine checking of intrauterine contraceptive device (principal); Z32.02 Encounter for pregnancy test, result negative
CPT/HCPCS: 99213

== ENCOUNTER → 2024-03-21 08:15 | Outpatient (BNVA) | payer MEDICAID, SELFPAY | PROVIDERS: Visit Provider Obstetrics & Gynecology | DX: Z30.431 Encounter for routine checking of intrauterine contraceptive device (principal) | CPT/HCPCS: 81025; 99212 ==

== ENCOUNTER 2024-06-19 08:12 | Outpatient (AMB) | payer SELFPAY ==
--- NOTE | 2024-06-19 08:17 | MHC.OFFVIS ---
Vital Signs 06/19/24 08:22 Height 5 ft 2 in Weight 143 lb BMI 26.2 BP 116/70 Intake Visit Reasons: annual Client Solutions Manager Required: No Information Interpreted: non-clinical & clinical Screen Printing Supervisor: Screen Printing Supervisor Present (Liset SINHA) Accompanied by: Self / Same As Patient Allergies No Known Allergies Allergy (Verified 06/19/24 08:23) Is last menstrual period known: No (mirena) HPI Comments Details: Presenting for annual exam. No complaints. Last Pap/HPV was negative in 10/30 Last Mammogram was done in outside facility according to the patient in February of 2024 and was negative No previous screening Colonoscopy Last ultrasound done in 10/30 showed uterine myomas PFSH Medical History Recurrent UTI Vulvovaginal candidiasis Social History Household Members: Spouse Housing: Apartment Do you presently have visiting nurse or other home services: No Patient Tobacco Use Status: Never used Tobacco service: No Female Reproductive History Menstrual control method: progestin IUCD Date of last pap smear: 11/01/23 Review of Systems Const All systems reviewed & are unremarkable except as noted in HPI and below Card Reports as per HPI Resp Reports as per HPI GI Reports as per HPI and Reports no additional complaints Reports as per HPI Physical Exam Const General: cooperative, healthy appearing and comfortable Chest Chest palpation & inspection: normal inspection of the chest and normal palpation of entire chest wall Breast/axilla inspection: normal inspection of the breasts and normal inspection of the axillae Breast/axilla palpation: normal palpation of the breasts, normal palpation of the axillae and no axillary lymphadenopathy Resp Effort & Inspection: normal respiratory effort Auscultation: clear to auscultation bilaterally Percussion: percussion normal Cardio Palpation: normal PMI Rate: regular rate Rhythm: regular rhythm Heart sounds: no murmurs and no rubs Peripheral pulses: Peripheral pulses 2+ throughout GI Inspection: Yes normal to inspection Palpation (GI): Soft to palpation, nontender, no guarding, not rigid and No hepatosplenomegaly present Percussion: Yes normal to percussion Auscultation: normal bowel sounds Rectal Exam - Female: deferred General: Yes bladder normal to palpation External Female Exam: No lesion Speculum Exam - Vagina: normal appearance of the vagina, normal palpation, normal vaginal discharge and not erythematous Speculum Exam - Cervix: normal appearance of the cervix and normal palpation Bimanual exam- vagina & uterus: normal bimanual exam, normal palpation, uterine size normal, bladder normal to palpation, consistency normal and normal palpation Bimanual Exam- Adnexa, other: normal adnexae, no masses and no tenderness Assessment & Plan Assessment & Plan (1) Well woman exam: Code(s): Z01.419 - Encounter for gynecological examination (general) (routine) without abnormal findings Category: Medical Plan: Co testing not indicated this year. Counseled the patient about the recommended dietary allowance of 1200 mg of Calcium & 600 IU of vitamin D. Instructions given the patient to schedule next screening Mammogram in 03/03. The patient was referred to GI for screening colonoscopy . The patient was instructed to perform monthly self-breast exams and schedule annual exam in a year. All questions answered and the patient verbalized understanding. (2) Uterine myoma: Code(s): D25.9 - Leiomyoma of uterus, unspecified Category: Medical Plan: Pelvic ultrasound ordered, instructions given the patient to schedule an ultrasound and a follow-up appointment within 2 weeks. Orders: Orders US pelvic and transvaginal Today D25.9 - Leiomyoma of uterus, unspecified Referrals Gastroenterology Referral Z12.11 - Encounter for screening for malignant neoplasm of colon Coding Level of Care Code Est Pt Prev Care 40-64y(28680) Diagnoses Well woman exam Z01.419 Uterine myoma D25.9
--- OUTSIDE RECORDS SUMMARY | 2024-06-19 08:19 | XMS_ITS | Clinical Summary ---
Author Organization [employer] Address [address] [place] [address] Care Team Providers Care Adult And Pediatric Neurologist Name Role Phone Eneida Rosario Unavailable Unavailable Encounters Date Type Department Care Team Description 05/31/2024 Telephone Case Management [address] [place] [address] Eneida Rosario 05/22/2024 Patient Outreach Case Management [address] [place] [address] Josefina Mendes from Last 3 Months Social History Tobacco Use Types Packs/Day Years Used Date Smoking Tobacco: Never Assessed Comments Unknown Sex and Gender Information Value Date Recorded Sex Assigned at Female 12/06/2021 10:20 AM EDT Legal Sex Female 10:20 AM EDT Gender Identity Not on file Sexual Orientation Not on file Plan of Treatment Health Maintenance Due Date Last Done Comments CT Colonography 1973 Colonoscopy 1973 Colorectal Cancer Screening 1973 Depression Screening 1973 FIT DNA/Cologuard 1973 FIT 1973 FOBT 1973 Sigmoidoscopy 1973 Alcohol/Substance Use Screening 1985 Tobacco Screening 1985 Family Planning (PISQ) 1988 Hepatitis B Vaccines (1 of 3 - 19+ 3-dose series) 1992 Pap Smear 1994 Cervical Cancer Screening 05/26/2003 HPV/Cotest 05/26/2003 Mammogram 2013 Pneumococcal Vaccine: 50+ Ye ars (1 of 1 - PCV) 05/26/2023 Zoster Vaccines (1 of 2) 05/26/2023 COVID-19 Vaccine ( - 2023-2 5 season) 2023 Influenza Vaccine (#1) 2023 DTaP/Tdap/Td Vaccines (2 - T d or Tdap) 09/06/2025 09/07/2015 RSV Patients and Pa tients Aged 60 years or older (1 - 1-dose 75+ series) 2048 HIB Vaccines Aged Out No longer eligi ble based on patient's age to complete this topic HPV Vaccines Aged Out No longer eligi ble based on patient's age to complete this topic Hepatitis A Vaccines Aged Out No long er eligible based on patient's age to complete this topic IPV Vaccines Aged Out No longer eligi ble based on patient's age to complete this topic Meningococcal Vaccine Aged Out No corona saul eligible based on patient's age to complete this topic RSV under 20 months Aged Out No longe r eligible based on patient's age to complete this topic Rotavirus Vaccines Aged Out No longer eligible based on patient's age to complete this topic Care Teams Adult And Pediatric Neurologist Relationship Specialty Start Date End Date Eneida Rosario Health Navigator Financial Counseling and Assistance Services 05/31/24
--- OUTSIDE RECORDS SUMMARY | 2024-06-19 08:19 | XMS_ITS | Data Portability ---
Author Organization [facility], , [facility], OFFICE Address [address] [place] [address] [place] [address] Care Team Providers Care Well Cleaner Name Role Phone CRISTIN RAMOS Dye Penetrant Testing Technician JOHNATHON MATHIS Psychologist [facility] Dining Car Hop [phone] JUANCARLOS EMANUEL Primary Care Provider Unavail able STACIE SANTOS Entry Level Accounting Clerk Unavailable Assessment No assessment recorded. Plan of Treatment Reminders Order Date Submit Date Provider Last Modified By Organization Details Last Modified Time Details Appointments New Patie nt-30 2024 12:00P M KALLI NICHOLSON, PT, DPT Not available Not available Not available BEH[facility] IORAL [facility], INTEG RATED 2024 09:00A M Ami Maya, PHD Not available Not available Not available Radha ess Visit 30 2024 08:00A M Juancarlos Menchaca er, INTERNET RETAILER Not available Not available Not available Lab pap, LB + HPV - Pap smear with HPVIs this patie nt tamara trevino (y/n) ? IF yes, what type? 2023 024 [email or web address] [facility] (Pathology), [address] [facility], [place], [address], 07/04/2023 21:26:24 bouchra wet prep 2023 024 [facility], [address] [place] [address], [address], 04/12/2023 14:35:00 wet mount 2023 024 [facility], [address] [facility], [place], [address], 04/12/2023 14:35:01 Referral physi wisam thera pist refer ral 2024 025 [facility] (Imaging), [address], [place], [address], 06/11/2024 14:48:44 physi wisam thera pist refer ral - bilat trap spasm s, inter mitte nt neck pain. bilat eral UE pares thesi as inter mitte nt. Pt CLINICAL PROGRAM COORDINATOR. Refer ral for work on neck and muscl e spasm s [address] PT, [address], [place], [address], 06/28/2023 14:59:40 Procedures None recor ded. Surgeries None recor ded. Imaging MAMMO , scree arianna, tomos ynthe sis, bilat eral - 2nd Look Consu lt/Di ag Mammo /US Breas t/Christopher ded Asp/B reast Bx/Cl ip Place ment, as clini evan indic ated. 2023 024 [facility] (Imaging), [address], [place], [address], 11/13/2023 13:34:03 XR, cervi wisam spine 2023 024 [facility] (Imaging), [address], [place], [address], 06/27/2023 11:19:49 Medication Orders cyclo benza brittaney 5 mg table t 2024 025 [facility][id number], [address] [facility], [place], [address], 06/06/2024 16:00:45 mecli zine 25 mg table t 2023 024 [facility][id number], [address] [place], [address], 07/26/2023 15:37:48 fluco nazol e 150 mg table t 2023 [id number], [address] [place], [address], 06/27/2023 09:02:28 Patient TargetsNo targets recorded. Patient Instructions Encounter Date Encounter Id Patient Instructions Last Modified By Organization Details Last Modified Time 04/12/2023 [id number] vaginal yeast infection: care instructions nick Not available 04/12/2023 14:35:55 Reason for Referral Physical Therapist Referral for Paresthesia of upper limb bilat trap spasms, intermittent neck pain. bilateral UE paresthesias intermittent. Pt CLINICAL PROGRAM COORDINATOR. Referral for work on neck and muscle spasms Referring Physician: Juancarlos Emanuel, [facility], Encounter Date: 06/27/2023 Physical Therapist Referral for Pain of knee region Referring Physician: Char Engel, [facility], Encounter Date: 06/06/2024 Results Created Date Observation Date Name Description Value Unit Range Abnormal Flag Note LastModifiedBy Organization Detail LastModifiedTime 04/12/19 24 04/12/2023 wet mount Result Yeast seen Not Available [address], [address], 04/12/2023 14:34:27 04/12/19 24 04/12/2023 bouchra wet prep Hyphae Presen t Not Available [address], [address], 04/12/2023 14:34:26 06/27/19 24 06/30/2023 PAP TEST path report [facility] [place] [facility] [address] [place] [address] Lab Direc tor: Saundra villar MD ASSOCIATE PROFESSOR OF [employer] Cytol ogy Repor t Acces eileen #: [id number] FINAL DIAGN OSIS A. PAP SMEAR (THIN PREP) CE: SPECI MEN ADEQU ACY: Satis facto ry for evalu ation ; trans forma tion zone prese nt. INTER PRETA TION: NEGAT DWAYNE FOR INTRA EPITH ELIAL LESIO N OR MALGERARDO MUSTAFA . React dwayne jacobo es. Funga l organ isms morph ologi evan consi stent with Kimberly da speci es. This speci men was raymond zed by the autom ated ThinP rep Imagi ng Syste m ([employer] ) and manua lly rescr eened by a cytot echno logis t and/o r patho logis t. Elect edmundo juddjustin Yoselyn d Out By: MD Gisel Robles er, CT( CP) By his/h er deo barron above , the patho logis t liste d as suresh schuster the Final Diagn osis certi fies that he/sh e has perso stephany revie wed this case and confi rmed or corre cted the diagn osis. The Pap test is a scree arianna test prima rily for squam ous cance rs and precu rsors and has assoc iated false -nega tive and false -posi tive resul ts. New techn ologi es such as liqui d-bas ed prepa ratio ns may decre ase but will not elimi haylee all false -nega tive resul ts. Regul ar sampl ing and follo w-up of unexp nile d clini wisam signs and sympt oms are recom dina d to minim ize false negat dwayne resul ts. PROCE DURES /ADDE NDA HPV Testi ng (Requ ested ) Order ed Date: 2023 A. PAP SMEAR (THIN PREP) CE: Human Papil sobia Virus Test NEGAT DWAYNE for high- risk Human Papil sobia Virus types 16, 18, 45 and the Othe r high risk probe set (Incl udes 31, 33, 35, 39, 51, 52, 56, 58, 59, 66, 68) Note: Testi ng perfo rmed by Ming [place] nson On[place] rity HR-HP V raymond sis. Clini wisam corre latio n is advis ed. This HPV test was perfo rmed at [facility], [address] [facility] t[facility]. This test has been FDA appro adelfo for both SureP ath and ThinP rep cervi wisam cytol ogy speci mens. The accur acy and preci eileen of this test for all other speci men sourc es has been verif ied in the Cytop athol ogy Labor atory of the [facility] and has not been clear ed or appro adelfo by the U.S. Food and Drug Admin istra tion. Clini wisam corre latio n is advis ed. Daisy ctron icall y Yoselyn d Out By: ELODIA Xavier( CP) on 2023 15:08 CLINI WISAM HISTO RY Date of Last Menst rual Perio d: Not Provi ded Menst rual Histo ry: Unkno wn Other Clini wisam Condi tions : Scree arianna Pap SPECI MEN SOURC E A: PAP SMEAR (THIN PREP) CE Patie nt Name: SHARON SANCHEZ : 1975 (Age: 48) Sex: F 1 Insti tutio n: [facility] Locat ion: [facility] Date of Colle ction : 2023 Date of Acces eileen: 2023 Repor micheal: 2023 15:48 Resul ts to: Juacnarlos Melissa hneid er INTERNET RETAILER Not Available [facility] (Outpatient) [address] [place] [address], [address], 06/30/2023 18:36:35 06/27/19 24 06/27/2023 XR, cervi wisam spine CLINIC AL HISTOR Y: Neck pain. TECHNI QUE: AP, latera l and odonto id views of the cervic al spine obtain ed. Bilate ral obliqu e views added. COMPAR ZEB: None. FINDIN GS: Verteb ral body alignm ent is within physio logic limits . There is no signif icant degene rative change . There is no fractu re. The prever tebral soft tissue s are unrema rkable . IMPRES EILEEN: 1. No signif icant degene rative change . 2. No acute bony abnorm ality. Nereida schuster Physic namrata: Morro Asencio [facility] (Imaging) [address] [place], [address], 06/29/2023 13:14:42 11/13/19 24 11/13/2023 MAMMO , scree arianna, tomos ynthe sis, bilat eral MAMMO, SCREEN , JENNIFER, BILAT: 024. BI-RAD S: 1 CLINIC AL: 48-yea r old Female for Bilate ral Screen ing Mammog amy. Tyrer- Cuzick lifeti me risk of 5.1%. No person al or first- degree family histor y of breast cancer . PRIOR EXAMS: No previo us exam presen tly availa ble for compar zeb. This is Baseli ne Mammog amy. MAMMOG VICTOR HUGO TECHNI QUE: 3D mammog victor hugo (tomos ynthes is) and 2D mammog victor hugo (C-vie w) images are genera micheal. Images review ed with a CAD system . DENSIT Y B. There are scatte red areas of fibrog landul ar densit y. MAMMOG VICTOR HUGO FINDIN GS Bilate ral: No suspic ious mass, asymme try, microc alcifi cation , or other abnorm ality seen. CONCLU SIONNo eviden ce of malign david. RECOMM ENDATI ONS Bilate ralAnn ual screen ing mammog victor hugo. ADMINI STRATI VE: A lay summar y was mailed to your patien sander hernandez the result s and recomm endati ons for follow -up. OVERAL L ASSESS MENT CATEGO RY BI-RAD S-1: Negati ve. The [employer] o[employer] recomm ends annual screen ing mammog victor hugo beginn ing at age 40 for women with averag e risk of breast cancer . ELECTR ONICAL LY SIGNED : Morro Asencio M.D. on 2023 at 01:33: 48 PM Nereida schuster Physic namrata: Morro Asencio [facility] (Imaging) [address] [place], [address], 11/13/2023 14:12:22 Result Notes None recorded. Procedures Surgical History Date Name Laterality Status Provider Name and Address Organization Details Recorded Time 3 Jerod - EGD completed Ranjeet Newsome MD [address] [place], [address], [facility] [place]16/2022 09:42:38 3 Jerod - Colonoscopy completed Ranjeet Newsome MD [address] [place] [address], [address], [facility] [place]16/[place] 09:44:04 Imaging Results Imaging Date Name Status LastModified by Organiz ation Details LastModified Time 06/27/2023 XR, cervical spine completed [facility] (Imaging) [address] [place], [address], 06/29/2023 13:14:42 11/13/2023 MAMMO, screening, tomosynthesis, bilateral completed [facility] (Imaging) [address] [place], [address], 11/13/2023 14:12:22 Procedure Notes None recorded. Medical Equipment None Reported. Allergies No known drug allergies Medications Name Sig Start Date Stop Date Status Note LastModified by Organization Details LastModified Time amoxicill in 500 mg capsule TAKE 2 CAPSULES BY MOUTH TWICE A DAY FOR 14 DAYS 10/07 completed Not Available Not Available Not Available fluconazo le 150 mg tablet TAKE 1 PILL TODAY, IF SYMPTOMS NOT IMPROVIN G TAKE SECOND PILL IN 72 HOURS. 06/26 completed Not Available Not Available Not Available clarithro mycin 500 mg tablet TAKE 1 TABLET BY MOUTH EVERY 12 HOURS FOR 14 DAYS 10/07 completed Not Available Not Available Not Available metronida zole 0.75 % (37.5 mg/5 gram) vaginal gel Insert 1 applicat orful every day by vaginal route at bedtime for 7 days. 02/08 completed Not Available Not Available Not Available Tubersol 5 tub. unit/0.1 mL intraderm al injection solution Take 1 mL by intrader mal route. 12/01 completed Not Available Not Available Not Available Formula tablet Take 1 tablet every day by oral route. 04/05 completed Not Available Not Available Not Available clobetaso l 0.05 % topical cream APPLY THIN COAT TO AFFECTED AREA TWICE A DAY 12/20 completed Not Available Not Available Not Available Zithromax Z-Rodrigue 250 mg tablet TAKE 2 TABLETS (500 MG) BY ORAL ROUTE ONCE DAILY FOR 1 DAY THEN 1 TABLET (250 MG) BY ORAL ROUTE ONCE DAILY FOR 4 DAYS 04/05 completed Not Available Not Available Not Available metronida zole 500 mg tablet Take 1 tablet twice a day by oral route for 28 days. active per [facility] [place] [place] d/c note 10/12/23 - ASRN Not Available Not Available Not Available Naprosyn 375 mg tablet Take 1 tablet twice a day by oral route. 2014 active Not Available Not Available Not Avai lable meclizine 25 mg tablet TAKE 1 TABLET 3 TIMES A DAY BY ORAL ROUTE NEEDED. active Not Available Not Available No t Available doxycycli ne monohydra te 100 mg capsule Take 1 capsule twice a day by oral route for 28 days. 06/06 completed per [facility] [place]/c note 10/12/23 - ASRN Not Available Not Available Not Available Elimite 5 % topical cream APPLY (THOROUG HLY MASSAGE INTO SKIN FROM HEAD TO SOLES OF FEET) BY TOPICAL ROUTE ONCE LEAVE ON FOR 8-14 HR, THEN REMOVE BY THOROUGH WASHING 2014 active Not Available Not Available Not Avai lable docusate sodium 100 mg capsule TAKE 1 CAPSULE DAILY NEEDED CONSTIPA TION 01/15 completed pt states finished this med 01/15/19 LC Not Available Not Available Not Available omeprazol e 20 mg capsule,d elayed release TAKE 1 CAPSULE BY MOUTH TWICE A DAY FOR 14 DAYS 10/07 completed Not Available Not Available Not Available diclofena c sodium 50 mg tablet,de layed release TAKE 1 TABLET(S ) TWICE A DAY BY ORAL ROUTE WITH MEALS FOR 15 DAYS. 05/19 completed Not Available Not Available Not Available ibuprofen 600 mg tablet Take 1 tablet by oral route 3 times per day with food 12/01 completed Not Available Not Available Not Available Vitamin C 250 mg tablet Take 1 tablet every day by oral route. 10/07 completed Not Available Not Available Not Available ipratropi um bromide 42 mcg (0.06 %) nasal spray Union 2 sprays 3 times a day by intranas al route. 04/05 completed Not Available Not Available Not Available ketorolac 60 mg/2 mL intramusc ular solution 2 ml IM rt buttocks 2014 active Not Available Not Available Not Avai lable Terazol 7 0.4 % vaginal cream Insert 1 applicat orful every day by vaginal route at bedtime for 7 days. 07/30 completed Not Available Not Available Not Available clotrimaz ole 1 % topical cream APPLY TO THE AFFECTED AND SURROUND ING AREAS OF SKIN BY TOPICAL ROUTE 2 TIMES PER DAY IN THE MORNING AND EVENING 2022 active Not Available Not Available Not Avai lable Laxative (bisacody l) 5 mg tablet,de layed release 10/07 completed Not Available Not Available Not Available Julia 0.35 mg tablet TAKE 1 TABLET BY MOUTH EVERY DAY active Not Available Not Available No t Available Vitamin D3 25 mcg (1,000 unit) capsule Take 1 capsule every day by oral route. 10/07 completed Not Available Not Available Not Available cyclobenz aprine 5 mg tablet TAKE 1 TO 2 TABLETS BY MOUTH AT BEDTIME active Not Available Not Available No t Available folic acid active Not Available Not Available Not Available Miralax PRN active Not Available Not Avail able Not Available multivita min 1 yablet daily 10/07 completed Not Available Not Available Not Available Sronyx 0.1 mg-20 mcg tablet TAKE 1 TABLET BY MOUTH EVERY DAY 12/01 completed Not Available Not Available Not Available PrenaPlus 27 mg iron-1 mg tablet Take 1 tablet every day by oral route. 2012 active Not Available Not Available Not Avai lable GaviLyte- G 236 gram-22.7 4 gram-6.74 gram-5.86 gram oral solution 10/07 completed Not Available Not Available Not Available Probiotic 10/07 completed Not Available Not Available Not Available Vitals None Recorded Social History Question Answer Notes LastModified by Organizat ion Details LastModified Time Do You Wear A Helmet When Biking? No Pt Does Not Ride A Bike Information not available 02/28/2020 What Is Your Level Of Caffeine Consumption? Occasional Information not available 02/28/2020 How Much Tobacco Do You Chew? None [email or web address] Information not available 04/05/2016 What Type Of Diet Are You Following? REGULAR [email or web address] Information not available 02/04/2013 Which Illicit Or Recreational Drugs Have You Used? Denies [email or web address] Information not available 11/22/2016 Have There Been Any Changes To Your Family Or Social Situation? No [email or web address] Information not available 06/27/2023 How Many Days In The Past Year Have You Had A Heavy Drinking Consumption (4+ Female, 5+ Male)? 0 [email or web address] Information not available 02/04/2013 Are There Any Guns Present In Your Home? No [email or web address] Information not available 02/04/2013 Live Alone Or With Others? With Others Sister Helps Her With Baby [email or web address] Information not available 04/05/2016 Patient Has Health Care Proxy Signed And In Chart No 04/05/16 [email or web address] Information not available 02/08/2018 Marital Status Domestic Partner [email or web address] Information not available 03/31/2020 Mosquito Repellent Used Routinely No Information not available 02/04/2013 What Was The Date Of Your Most Recent Tobacco Screening? 07/26/2023 12/05/22MV, 12/19/22mh, 04/12/23mh, 06/27/23[email or web address] Information not available 07/26/2023 How Many Children Do You Have? 2 Son And Daughter (10/20/15) [email or web address] Information not available 02/04/2013 Do You Use Your Seat Belt Or Car Seat Routinely? Yes [email or web address] Information not available 06/27/2023 Seat Belts Used Routinely Yes [email or web address] Information not available 02/04/2013 Smoke Alarm In Home Yes [email or web address] Information not available 02/04/2013 Do You Have Smoke And Carbon Monoxide Detectors In Your Home? Yes [email or web address] Information not available 06/27/2023 General Stress Level Medium Med-high Information not available 02/28/2020 Do You Use Sunscreen Routinely? No Information not available 02/04/2013 Sex: Female Functional Status Question Answer Note LastModified by Organizat ion Details LastModified Time What is your level of alcohol consumption? None 12/19/22 mh, 04/12/23m h, 06/27/23m h [email or web address] Information not available 06/27/2023 Do you or have you ever used smokeless tobacco? 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 Never used electronic cigarettes Information not available 03/31/2020 Mental Status None recorded. Family History Relationship Description Onset Age of this Age Resolved Age Notes LastModified by Organization Details LastModified Time Mother Deep venous thrombosis report ed blood clot - unclea r if DVT or PE [email or web address] Not available 01/16/2019 07:56:13 Notes:Cardiovascular: heart problems in her mother Endocrine: Family history is remarkable for diabetes mellitus. mother Medical History No medical history recorded. Gynecological HistoryNo gynecological history recorded. Obstetrics History GPAL:G 4 P 2 0 2 2 Type Value Full Term 2 Induced 2 Living 2 Total 4 Past Encounters Encounter ID Performer Location Encounter Start Date Encounter Closed Date Diagnosis/Indication Diagnosis SNOMED-CT Code Diagnosis ICD10 Code Diagnosis Note [id number] Wilda ESCOBAR, [facility], OFFICE [address] [place] [id number] 07/25/2006 14:35:24 07/25/2006 17:21:45 [id number] [facility] - [address] [address] 07/25/2006 15:41:47 07/25/2006 15:41:57 [id number] [facility] - [facility] [address] [place] [address] 07/26/2006 10:56:16 07/26/2006 10:56:31 [id number] MD SHAWN Nathan, [facility], OFFICE [address] [place] [address] 08/04/2006 16:31:24 08/07/2006 07:38:46 [id number] Wilda ESCOBAR, [facility], OFFICE [address] [place] [address] 08/24/2006 14:32:37 08/28/2006 14:45:49 [id number] Brady ESCOBAR, [facility], OFFICE [address] [place] [address] 09/28/2006 13:59:54 09/28/2006 16:43:50 [id number] [facility] - [facility] [address] [place] [id number] 09/29/2006 09:00:00 09/29/2006 09:38:53 [id number] Hedy Yi NP , [facility], OFFICE [address] [place] [address] [place] [id number] 12/25/2006 15:39:08 02/27/2008 02:02:29 [id number] Tyra Louis MD , [facility], OFFICE [address] [place] [address] [address] [place] [id number] 03/21/2007 14:44:24 02/27/2008 02:02:29 [id number] Char Fry NP , [address] [place] [id number] 08/20/2007 15:17:03 08/22/2007 09:58:51 [id number] Tyra Louis MD , [address] [place] [id number] 10/17/2007 14:29:22 02/27/2008 02:02:29 [id number] Tyra Louis MD , [address] [place] [id number] 07/10/2008 14:28:40 07/15/2008 11:54:21 [id number] FP TREATMENT NURSE [facility], [address] [place] [id number] 07/15/2008 14:28:06 07/16/2008 08:02:36 [id number] FP TREATMENT NURSE [facility], [address] [place] [id number] 07/17/2008 14:20:34 07/18/2008 08:03:15 [id number] Primitivo Sands NP , [facility] OFFICE [address] [place] [address] [address] [place] [id number] 08/18/2009 10:09:37 08/18/2009 13:28:05 [id number] Tyra Louis MD , [facility], [address] [place] [id number] 12/01/2009 07:53:14 12/02/2009 07:59:20 [id number] Tyra Louis MD , [facility], OFFICE [address] [place] [address] [place] [id number] 12/08/2009 08:35:14 12/09/2009 11:01:13 [id number] Tyra Louis MD , [facility], [address] [place] [address] 02/01/2010 11:35:05 02/01/2010 13:31:26 [id number] Primitivo Sands NP , [facility], OFFICE [address] [place] [address] [place] [id number] 02/09/2010 13:44:46 02/09/2010 17:37:07 [id number] [facility] ULTRASOUND Technologi st Radiology , [facility] [address] [place] [address] 02/10/2010 15:07:15 02/11/2010 10:48:37 [id number] Dennise Dumont PA-C , [address] [place] [id number] 02/04/2013 10:40:10 02/04/2013 11:48:52 [id number] LOBO Nelson, [address] [place] [id number] 02/25/2013 09:44:46 02/26/2013 08:19:06 [id number] Matt Snowden III, MD , [address] [place] [id number] 07/23/2013 09:21:48 07/23/2013 09:57:10 [id number] LOBO Nelson, [address] [place] [id number] 08/19/2013 10:21:11 08/19/2013 13:56:07 [id number] LOBO Lanodn, [address] [place] [id number] 08/21/2013 10:24:23 08/22/2013 07:41:22 [id number] MD SHAWN He, [address] [place] [id number] 11/19/2013 07:52:27 11/19/2013 08:37:34 [id number] MD SHAWN He, [address] [place] [id number] 12/13/2013 08:00:27 12/13/2013 08:47:33 [id number] Ebony Krishna, PT Physical Therapy, [address] [place] [address] 12/20/2013 12:03:02 12/23/2013 09:54:15 [id number] Ebony Krishna, PT Physical Therapy, [address] [place] [address] 12/25/2013 07:54:06 12/25/2013 12:40:55 [id number] Ebony Krishna, PT Physical Therapy, [address] [place] [address] 01/08/2014 07:59:58 01/08/2014 12:59:19 [id number] Ebony Krishna, PT Physical Therapy, [address] [place] [address] 01/15/2014 08:24:22 01/16/2014 10:15:53 [id number] Ebony Krishna, PT Physical Therapy, [address] [place] [address] 01/22/2014 08:00:57 01/23/2014 10:57:10 [id number] Amaris Marte NP [address] [place] [id number] 02/17/2014 11:45:33 02/26/2014 15:44:21 [id number] Dennise Dumont PA-C [address] [place] [id number] 05/12/2014 11:00:21 05/12/2014 11:37:33 [id number] Azra Ritchie D.O. [address] [place] [id number] 02/17/2015 10:34:23 02/18/2015 16:29:06 [id number] Tania Encarnacion MD [address] [place] [id number] 09/29/2015 10:33:37 09/29/2015 17:57:22 [id number] Azra Ritchie D.O. [address] [place] [address] 04/05/2016 13:43:57 04/05/2016 14:03:10 [id number] Azra Ritchie D.O. , [facility], OFFICE [address] [place] [address] [place] [id number] 08/24/2016 14:36:38 08/24/2016 15:05:35 [id number] Cristin Ramos DPM Podiatry, [address] [place] [address] 09/05/2016 15:15:24 09/05/2016 15:53:07 [id number] Rosalinda Walls, PT Physical Therapy, [address] [place] [address] 09/07/2016 16:28:44 09/08/2016 15:07:48 [id number] Rosalinda Walls PT Physical Therapy, [address] [place] [id number] 09/14/2016 15:58:54 09/19/2016 08:30:53 [id number] Rosalinda Walls PT Physical Therapy, [address] [place] [address] 09/21/2016 15:55:32 09/21/2016 16:55:44 [id number] Levi Juarez MD [address] [place] [id number] 1 09/22/2016 15:54:46 09/22/2016 16:50:04 [id number] Levi Juarez MD [address] [place] [id number] 1 09/26/2016 16:02:27 09/26/2016 16:39:10 [id number] Levi Juarez MD [address] [place] [id number] 1 11/01/2016 14:49:50 11/01/2016 15:23:26 [id number] Levi Juarez MD [address] [place] [id number] 1 11/08/2016 08:39:21 11/08/2016 08:49:40 [id number] Levi Juarez MD [address] [place] [id number] 1 11/10/2016 15:00:02 11/10/2016 15:11:30 [id number] Levi Juarez MD [address] [place] [id number] 1 11/22/2016 15:06:16 11/22/2016 16:02:29 [id number] Aamir Tucker MD , [facility], [address] [place] [address] 01/21/2017 11:02:35 01/21/2017 11:42:45 [id number] Azra Ritchie D.O. , [facility], [address] [place] [id number] 1 05/19/2017 14:57:07 05/19/2017 15:27:39 [id number] Levi Juarez MD , [facility], [address] [place] [id number] 1 09/26/2017 08:43:36 09/26/2017 09:28:26 [id number] Azra Ritchie D.O. , [address] [place] [id number] 1 12/12/2017 09:43:39 12/12/2017 10:47:[id number], LDN, MPH Nutrition -[address] [place] [address] 4 12/19/2017 08:25:43 12/20/2017 13:14:48 [id number] Azra Ritchie D.O. [address] [place] [id number] 1 01/15/2019 15:43:19 01/15/2019 16:32:12 [id number] Sushila Dooley MD , [facility], [address] [place] [id number] 1 12/17/2019 08:11:13 12/17/2019 10:27:57 [id number] Johnathon Mathis PsyD , [address] [place] [id number] 1 12/25/2019 10:08:19 12/25/2019 10:31:14 [id number] Johnathon Mahtis PsyD , [address] [place] [id number] 1 01/22/2020 11:04:15 01/22/2020 11:31:40 [id number] Johnathon Mathis PsyD , [address] [place] [id number] 1 02/19/2020 15:22:47 02/19/2020 15:45:01 [id number] Sushila Roberttari . MD ESCOBAR, [facility], [address] [place] [id number] 1 02/28/2020 10:52:29 03/02/2020 13:46:59 [id number] Sushila Shoushtari . MD ESCOBAR, [facility], [address] [place] [id number] 1 03/31/2020 10:55:41 04/02/2020 14:15:47 [id number] MD SHAWN He, [address] [place] [id number] 1 04/21/2020 07:53:02 04/24/2020 10:48:25 [id number] Sushila Roberttari . MD ESC[place], [address] [place] [address] 1 04/21/2020 10:20:24 04/24/2020 13:08:45 [id number] MD SHAWN He, [address] [place] [id number] 1 11/30/2020 17:10:00 12/01/2020 20:29:34 [id number] Tawana Manzanares MD , [address] [place] [id number] 1 12/01/2020 09:27:00 12/01/2020 09:56:33 [id number] Sushila Jonestari . MD [place], [facility], [address] [place] [address] 1 02/11/2021 13:38:21 02/11/2021 17:05:20 [id number] Jeff Paulson, [address] [place] [id number] 1 02/12/2021 15:23:11 02/12/2021 17:25:35 [id number] Jeff Paulson, [address] [place] [id number] 1 03/03/2021 15:43:05 03/03/2021 16:21:57 [id number] Jeff Paulson, [facility], OFFICE [address] [place] [address] [place] [address] 1 03/16/2021 14:33:17 03/16/2021 15:37:01 [id number] Dennise Melo MD Podiatry, [address] [place] [address] 1 03/19/2021 10:55:42 03/19/2021 11:49:53 [id number] Dennise Melo MD Podiatry, [address] [place] [address] 1 03/29/2021 10:25:15 03/29/2021 11:42:23 [id number] Johnathon Mathis PsyD , [address] [place] [address] 1 04/09/2021 13:44:05 04/09/2021 15:24:37 [id number] Johnathon Mathis PsyD , [address] [place] [id number] 1 05/07/2021 13:40:27 05/07/2021 14:10:59 [id number] Johnathon Mathis PsyD [address] [place] [id number] 1 06/18/2021 11:46:45 06/18/2021 14:47:59 [id number] Azra Ritchie D.O. , [address] [place] [address] 1 11/22/2021 08:42:34 11/22/2021 16:43:00 [id number] Ranjeet Newsome MD [facility] , [address] [place] [address] 1 05/16/2022 08:22:55 05/16/2022 14:08:09 [id number] Levi Juarez MD , [address] [place] [address] 1 10/07/2022 17:24:28 10/11/2022 08:36:32 [id number] Sushila Dooley MD , [address] [place] [address] 1 12/05/2022 16:01:03 12/05/2022 17:28:51 [id number] Sushila Roberttamoinca . , [facility], [address] [place] [address] 1 12/19/2022 15:31:51 12/20/2022 12:12:55 [id number] Sushila Shoushtari . , [facility], OFF[address] [place] [address] 1 04/12/2023 13:37:06 04/12/2023 17:21:42 [id number] Sushila Shoushtari . , [facility], [address] [place] [address] 1 06/27/2023 08:58:37 06/27/2023 10:01:13 [id number] Juancarlos Menchaca er, [employer] , [facility], [address] [place] [id number] 1 07/26/2023 15:21:23 07/26/2023 15:48:36 [id number] Levi Juarez MD , [facility], [address] [place] [address] 1 10/18/2023 09:51:21 10/18/2023 10:31:48 [id number] Char Engel MD , [facility], OFFICE [address] [place] [address] [place] [id number] 1 06/06/2024 15:24:56 06/06/2024 16:18:12 Health Concerns Section Related Observation LastModified by Organization Detai ls LastModified Time None Recorded Concern Status LastModified by Organization Details LastModified Time None Recorded Advance Directives Directive None Recorded Payers Encounter Date Sequence Insurance Name Policy Number Policy Mcdowell Covered Member ID Mcdowell Member ID Guarantor Name 04/12/2023 1 [employer] - DOS ON OR AFTER 2022 - [employer] (MEDICAID REPLACEMENT - HMO) Sharon Sanchez [id number] Sharon Sanchez 06/27/2023 1 [employer] - DOS ON OR AFTER 2022 - [employer] (MEDICAID REPLACEMENT - HMO) Sharon Sanchez [id number] Sharon Sanchez 07/26/2023 1 [employer] - DOS ON OR AFTER 2022 - [employer] (MEDICAID REPLACEMENT - HMO) Sharon Sanchez [id number] Sharon Sanchez 06/06/2024 1 [employer] - DOS ON OR AFTER 2022 - [employer] [facility] (MEDICAID REPLACEMENT - HMO) Sharon Sanchez [id number] Sharon Sanchez OBGyn Episode No OBEpisode recorded.
[2024-06-19 08:22] VITALS: BP 116/70; BMI 26.2
== END 2024-06-19 08:40 | disposition home or self-care (01) ==
LOC: HO.HWS 08:13
PROVIDERS: Visit Provider Obstetrics & Gynecology
DX: Z01.419 Encounter for gynecological examination (general) (routine) without abnormal findings (principal); D25.9 Leiomyoma of uterus, unspecified
CPT/HCPCS: 99396; 99459

== ENCOUNTER → 2024-06-19 08:12 | Outpatient (BNVA) | payer SELFPAY | PROVIDERS: Visit Provider Obstetrics & Gynecology | DX: Z01.419 Encounter for gynecological examination (general) (routine) without abnormal findings (principal); D25.9 Leiomyoma of uterus, unspecified | CPT/HCPCS: 99396; 99459 ==